=== PATIENT | female | born 1990 ===

== ENCOUNTER 2020-05-27 13:11 | Outpatient (REF) | payer OTHER, SELFPAY ==
[2020-05-27 13:53] LABS: MANUAL DIFF FLAG NO
[2020-05-27 13:58] LABS: Basophils Percent Auto 0.6 % (0-2); Eosinophils Absolute Auto 0.1 X10*3/uL (0.0-0.4); Eosinophils Percent Auto 1.4 % (0-4); Hematocrit 38.5 % (37-47); Hemoglobin 12.1 g/dl (12.0-16.0); Imm Gran Abs Auto 0.01 X10*3/uL (0.00-0.03); Imm Gran Pct Auto 0.2 % (0.0-0.4); Lymphocytes Absolute Auto 2.6 X10*3/uL (1.2-4.9); Mean Corpuscular HGB Conc 31.4 g/dl (31.0-35.0); Mean Corpuscular Hemoglobin 27.1 pg (27.0-33.0); Mean Corpuscular Volume 86.1 fL (80-98); Mean Platelet Volume 11.2 fL (9.4-12.3); Monocytes Absolute Auto 0.4 X10*3/uL (0.1-1.2); Monocytes Percent Auto 6.8 % (2-11); Neutrophils Absolute Auto 2.1 X10*3/uL (2.0-8.3); Platelet Count 390 X10*3/uL (160-400); Red Blood Count 4.47 X10*6/uL (4.20-5.50); Red Cell Distribution Width 13.2 % (11.0-16.0); White Blood Count 5.1 X10*3/uL (4.8-10.8)
[2020-05-27 14:21] LABS: Anion Gap 15 (12-20); Blood Urea Nitrogen 14 mg/dL (9-16); Calcium 9.2 mg/dL (8.4-10.2); Carbon Dioxide 25 mmol/L (22-29); Chloride 105 mmol/L (96-108); Cholesterol 177 mg/dL; Estimated Glomerular Filt Rate > 60; Glucose Fasting 98 mg/dL (60-99); HDL Cholesterol 66 mg/dL; LDL Cholesterol Calculated 94 mg/dl; Potassium 4.5 mmol/l (3.3-5.1); Sodium 140 mmol/L (135-145); Triglycerides 87 mg/dL
== END 2020-05-27 13:12 | disposition home or self-care (01) ==
LOC: HO.LAB 13:11
PROVIDERS: Visit Provider Nurse Practitioner Family
DX: Z00.00 Encounter for general adult medical examination without abnormal findings (principal); N76.0 Acute vaginitis
CPT/HCPCS: 36415; 80048; 80061; 85025

== ENCOUNTER 2020-10-18 12:17 | Outpatient (REF) | payer OTHER, SELFPAY ==
[2020-10-19 08:52] LABS: Mumps Virus IgG Antibody >300.00 AU/mL
[2020-10-21 07:52] LABS: HBS Num1 105.26 mIU/mL (0-7.99); HBc Num1 0.12 S/CO (0.00-0.79); HBsAGNum1 0.16 S/CO (0.00-0.99); Hepatitis B Core Antibody Nonreactive (Nonreactive); Hepatitis B Surface Antigen Negative (Negative); ~Hepatitis B Surface Antibody REACTIVE (Nonreactive)
[2020-10-21 12:42] LABS: TS Negative Control Passed; TS Panel A 0; TS Panel B 0; TS Positive Control Passed; TSpotTB Negative (SeeBelow)
== END 2020-10-18 12:18 | disposition home or self-care (01) ==
LOC: HO.LAB 12:17
PROVIDERS: Visit Provider Internal Medicine
DX: Z01.84 Encounter for antibody response examination (principal)
CPT/HCPCS: 36415; 86481; 86704; 86706; 86735; 86762; 86765; 86787; 87340

== ENCOUNTER 2020-10-22 10:10 | Outpatient (REF) | payer OTHER, SELFPAY ==
[2020-10-22 11:02] LABS: MANUAL DIFF FLAG NO
[2020-10-22 11:18] LABS: Basophils Percent Auto 0.5 % (0-2); Eosinophils Percent Auto 0.5 % (0-4); Hematocrit 37.9 % (37-47); Hemoglobin 12.2 g/dl (12.0-16.0); Lymphocytes Percent Auto 49.2 % (20-40); Mean Corpuscular HGB Conc 32.2 g/dl (31.0-35.0); Mean Corpuscular Hemoglobin 27.3 pg (27.0-33.0); Mean Corpuscular Volume 84.8 fL (80-98); Mean Platelet Volume 11.4 fL (9.4-12.3); Monocytes Absolute Auto 0.3 X10*3/uL (0.1-1.2); Monocytes Percent Auto 7.5 % (2-11); Neutrophils Absolute Auto 1.7 X10*3/uL (2.0-8.3); Neutrophils Percent Auto 42.3 % (45-73); Platelet Count 314 X10*3/uL (160-400); Red Blood Count 4.47 X10*6/uL (4.20-5.50); Red Cell Distribution Width 13.1 % (11.0-16.0)
[2020-10-22 11:26] LABS: Anion Gap 10 (12-20); Blood Urea Nitrogen 12 mg/dL (9-16); Calcium 9.2 mg/dL (8.4-10.2); Carbon Dioxide 26 mmol/L (22-29); Chloride 107 mmol/L (96-108); Estimated Glomerular Filt Rate > 60; Glucose Fasting 93 mg/dL (60-99); Potassium 4.9 mmol/L (3.3-5.1); Sodium 138 mmol/L (135-145)
[2020-10-22 11:50] LABS: TSH reflex Free T4 0.72 uIU/mL (0.32-4.0)
[2020-10-26 15:46] LABS: Vitamin D 25-OH, D2 <4 ng/mL; Vitamin D 25-OH, D3 18 ng/mL; Vitamin D 25-OH, Total 18 ng/mL (30-100)
== END 2020-10-22 10:11 | disposition home or self-care (01) ==
LOC: HO.LAB 10:10
PROVIDERS: Nurse Practitioner Family; PCP Internal Medicine; Visit Provider Internal Medicine
DX: E55.9 Vitamin D deficiency, unspecified (principal); R53.83 Other fatigue; B35.1 Tinea unguium
CPT/HCPCS: 36415; 80048; 82306; 84443; 85025

== ENCOUNTER 2021-01-15 08:22 | Outpatient (REF) | payer OTHER, SELFPAY ==
[2021-01-15 12:12] LABS: Syphilis Screen Nonreactive (Nonreactive)
[2021-01-15 15:41] LABS: CT PCR NOT DETECTED (Not Detect.); NG PCR NOT DETECTED (Not Detect.)
[2021-01-16 09:17] LABS: HIV AB/AG Nonreactive (Nonreactive); Hepatitis B Surface Antigen Negative (Negative); ~HepC Num1 0.21 S/CO (0.00-0.79); ~Hepatitis C Antibody Nonreactive (Nonreactive)
[2021-01-16 10:09] LABS: BV Int Neg Control Negative (Negative); BV Int Pos Control Positive (Positive)
== END 2021-01-15 08:23 | disposition home or self-care (01) ==
LOC: HO.LAB 08:22
PROVIDERS: PCP Internal Medicine; Visit Provider Advanced Practice Midwife
DX: Z01.419 Encounter for gynecological examination (general) (routine) without abnormal findings (principal); N89.8 Other specified noninflammatory disorders of vagina; E28.2 Polycystic ovarian syndrome; Z20.2 Contact with and (suspected) exposure to infections with a predominantly sexual mode of transmission
CPT/HCPCS: 36415; 86780; 86803; 87340; 87389; 87480; 87491; 87510; 87591; 87660; 88142

== ENCOUNTER 2021-08-12 08:51 | Outpatient (REF) | payer OTHER, SELFPAY ==
[2021-08-12 11:33] LABS: HCG Quantitative < 2 mIU/mL
== END 2021-08-12 08:52 | disposition home or self-care (01) ==
LOC: HO.LAB 08:51
PROVIDERS: PCP Internal Medicine; Visit Provider Advanced Practice Midwife
DX: Z32.02 Encounter for pregnancy test, result negative (principal); O26.90 Pregnancy related conditions, unspecified, unspecified trimester; R10.9 Unspecified abdominal pain
CPT/HCPCS: 36415; 81025; 84702; 99212

== ENCOUNTER 2021-10-27 08:15 | Outpatient (REF) | payer OTHER, SELFPAY ==
[2021-10-27 09:40] LABS: Vitamin D 25-OH Total 16.2 ng/mL (>30)
[2021-10-27 09:42] LABS: HBS Num1 90.27 mIU/mL (0-7.99); HBc Num1 0.13 S/CO (0.00-0.79); HBsAGNum1 0.21 S/CO (0.00-0.99); Hepatitis B Core Antibody Nonreactive (Nonreactive); Hepatitis B Surface Antigen Negative (Negative); ~Hepatitis B Surface Antibody REACTIVE (Nonreactive)
[2021-10-29 04:29] LABS: Mumps Virus IgG Antibody >300.00 AU/mL
[2021-10-29 20:53] LABS: TS Negative Control Passed; TS Panel A 0; TS Panel B 0; TS Positive Control Passed; TSpotTB Negative (Negative)
== END 2021-10-27 08:16 | disposition home or self-care (01) ==
LOC: HO.LAB 08:15
PROVIDERS: PCP Internal Medicine; Visit Provider Internal Medicine
DX: Z01.84 Encounter for antibody response examination (principal); Z11.1 Encounter for screening for respiratory tuberculosis; E55.9 Vitamin D deficiency, unspecified
CPT/HCPCS: 36415; 82306; 86481; 86704; 86706; 86735; 86762; 86765; 86787; 87340

== ENCOUNTER 2021-11-25 12:25 | Outpatient (REF) | payer OTHER, SELFPAY ==
[2021-11-25 13:58] LABS: HCG Quantitative < 2 mIU/mL
[2021-11-25 15:58] LABS: Amphetamine Screen Urine Not Detected (Not Detect); Barbiturates, Urine Not Detected (Not Detect); Benzodiazepines Screen Urine Not Detected (Not Detect); Cannabinoid Screen Urine Not Detected (Not Detect); Cocaine Screen Urine Not Detected (Not Detect); Fentanyl, urine Not Detected (Not Detect); Opiate Screen Urine Not Detected (Not Detect); Phencyclidine Screen Urine Not Detected (Not Detect)
== END 2021-11-25 12:26 | disposition home or self-care (01) ==
LOC: HO.LAB 12:25
PROVIDERS: Absent Provider Advanced Practice Midwife; PCP Internal Medicine; Visit Provider Internal Medicine
DX: O26.90 Pregnancy related conditions, unspecified, unspecified trimester (principal); O26.899 Other specified pregnancy related conditions, unspecified trimester; Z02.83 Encounter for blood-alcohol and blood-drug test
CPT/HCPCS: 36415; 80307; 84702

== ENCOUNTER 2021-12-10 09:07 | Outpatient (REF) | payer OTHER, SELFPAY ==
[2021-12-10 11:49] LABS: HCG Quantitative < 2 mIU/mL
== END 2021-12-10 09:08 | disposition home or self-care (01) ==
LOC: HO.LAB 09:07
PROVIDERS: PCP Internal Medicine; Visit Provider Internal Medicine
DX: N92.6 Irregular menstruation, unspecified (principal)
CPT/HCPCS: 36415; 84702

== ENCOUNTER 2022-10-21 12:46 | Emergency (ER) | payer OTHER, SELFPAY ==
--- NOTE | ~2022-10-21 | US_ITS ---
EXAMINATION: US OBSTETRICAL ULTRASOUND CLINICAL INFORMATION: 8 weeks gestation. Cramping. COMPARISON: None available. LMP: 08/23/2022. Gestational age by maternal dates is 8 weeks 3 days. Estimated date of delivery by maternal dates is 05/30/2023. TECHNIQUE: FINDINGS: There is a single intrauterine gestational sac with visible yolk sac, embryo/fetus, and cardiac activity. There is a small hypoechoic area adjacent to the gestational sac suggestive of subchorionic hemorrhage or hematoma measuring 1.9 x 0.5 x 0.7 cm. HR: 170 beats per minute. CRL (crown rump length): 1.81 cm (8 weeks 3 days +/- 4 days). RITA (estimated date of delivery): 05/30/2023 +/- 4 days. MATERNAL ADNEXA: The right maternal ovary measures 2.6 x 1.6 x 2 cm. The left maternal ovary measures 4.3 x 2.8 x 3.5 cm. 2.8 x 2.3 x 3.1 cm left ovarian cyst probably representing a corpus luteum. There is no significant maternal adnexal mass. No maternal pelvic ascites. US/US OB <= 14 weeks fetus IMPRESSION: 1. Single intrauterine gestation with ultrasound gestational age of 8 weeks 3 days +/- 4 days. 2. Estimated date of delivery is 05/30/2023 +/- 4 days. 3. No maternal adnexal mass or pelvic ascites.
--- NOTE | 2022-10-21 13:34 | ED_ITS ---
HPI - General Adult General Chief complaint: General Medical Stated complaint: Not Feeling Well Time Seen by Provider: 10/21/22 16:55 Source: patient and RN notes reviewed Mode of arrival: ambulatory Limitations: no limitations History of Present Illness HPI narrative: This is a 32-year-old female, with a past medical history of pre-eclampsia, @8 weeks gestation c/o generalized weakness, chills, GREEN, constipation, N/V, decreased PO intake, and white vaginal d/c and mild abdominal cramping x 2 weeks. Patient reports that she has had intermittent headaches for the last 3 days. She admits that she has been unable to eat well as she has been nauseous and has been vomiting. She last ate milkshake this morning but states that she vomited this back up. She has been taking Tylenol for her headaches which has provided her with some relief. Last dose was yesterday. Patient denies any chest pain, shortness of breath, weakness, abdominal pain, or diarrhea. No vaginal bleeding. Patient reports that this vaginal discharge she has had for many months has been told that this is normal for her. Denies any increase in vaginal discharge. No other complaints or concerns at this time. MD complaint: Multiple complaints Onset (ago): week(s) Severity: moderate Quality: aching Pain Consistency: constant Relieving factors: none Exacerbating factors: none Associated symptoms: denies other symptoms Treatments prior to arrival: none Related Data Previous Rx's Medication Instructions Recorded cholecalciferol (vitamin D3) 25 25 mcg PO DAILY 90 days #90 caps 10/27/21 mcg (1,000 unit) capsule amoxicillin 500 mg tablet 500 mg PO BID 7 days #14 tabs 12/09/21 terbinafine HCl 250 mg tablet 250 mg PO DAILY 90 days #90 tabs 07/26/22 Allergies Allergy/AdvReac Type Severity Reaction Status Date / Time No Known Allergies Allergy Verified 10/21/22 13:34 Review of Systems Review of Systems: Constitutional: No Weight loss, No Fever, No Chills ENT/Mouth: No Ear Pain, No Nasal Congestion, No Sinus Pain, No Hoarseness, No sore throat, No Rhinorrhea, No Swallowing Difficulty Cardiovascular: No Chest Pain, No SOB Respiratory: No Cough, No Sputum, No Wheezing Gastrointestinal: +Nausea, + Vomiting, No Diarrhea, No Constipation, No Abdominal pain Genitourinary: No Dysuria, No Urinary Frequency, No Hematuria, No Urinary Incontinence/retention, No Urgency, No Flank Pain Musculoskeletal: No joint pain, No Myalgias, No Joint Swelling Skin: No Skin Lesions, No rash Neuro: No Weakness, No Numbness, No Paresthesias Yes all other systems are reviewed and are negative Constitutional: Constitutional: Reports as per [facility] Past Medical History Attestation statement: The following information was validated with the patient. Medical History Bacterial vaginosis Depression Encounter for Depo-Provera contraception General medical examination Onychomycosis of great toe Tiredness Surgical History No pertinent past surgical history Family History Family History Mother No problems noted. Father No problems noted. Social History Social History Housing: Apartment Alcohol intake: never Patient Tobacco Use Status: Never used Tobacco e-Cigarette/Vaping Use: Never Used Second Hand Smoke Exposure: No service: No Current occupational status: employed Cognitive needs: No Hearing needs: No Vision needs: No Physical Exam ED Vital Signs: Vital Signs - 24 hr 10/21/22 17:12 10/21/22 18:22 10/21/22 18:24 Temperature 98.7 F Pulse Rate 70 66 71 Respiratory Rate 14 Blood Pressure 124/69 135/70 139/78 Pulse Oximetry 100 Oxygen Delivery Method Room Air 10/21/22 18:26 10/21/22 20:38 Temperature 96.5 F L Pulse Rate 70 75 Respiratory Rate 18 Blood Pressure 128/84 134/61 Pulse Oximetry 100 Oxygen Delivery Method Room Air BMI result Body Mass Index 29.5 Const General: cooperative, comfortable and no acute distress Orientation/consciousness: patient oriented x3 Limitations: no limitations HENMT Head: Yes normal to inspection, Yes normocephalic and Yes atraumatic Ears: hearing grossly normal bilaterally General nose exam: Normal external nose present Face and sinus: Yes normal facial exam Mouth: Normal oral and palatal mucosa present, oropharynx normal and moist m ucous membranes Throat: Yes posterior oropharynx normal Eyes General: appearance normal, both eyes and all related structures Eyelids: Yes eyelids normal Conjunctivae: conjunctivae normal Sclerae: sclerae normal Pupils: Equal, round and reactive pupils present EOM: EOMs intact bilaterally Neck Neck: Yes normal visual inspection, Yes full ROM and Yes no lymphadenopathy Lymphatic: no lymphadenopathy noted Chest Chest palpation & inspection: normal inspection of the chest Resp Effort & Inspection: normal respiratory effort and able to speak in complete sentences Auscultation: clear to auscultation bilaterally, no crackles, no rales, no rhonchi and no wheezes Cardio Rate: regular rate Rhythm: regular rhythm Heart sounds: S1 normal heart sound present and S2 normal heart sound present GI Other: Mild TTP in epigastrium and suprapubic region. No rebound or guarding. Inspection: Yes normal to inspection Palpation (GI): Soft to palpation Skin General skin exam: no rashes or lesions noted Trauma: no lacerations or abrasions Wounds: no wounds Neuro General: patient oriented x3 and moves all extremities Cranial nerves: Yes Equal, round and reactive pupils present Extrem General: Yes normal to inspection Right upper extremity: normal to inspection Left upper extremity: normal to inspection Right lower extremity: normal to inspection Left lower extremity: normal to inspection Course Course Course Narrative: RME: 32yo F w/PMHx pre-eclampsia, @8 weeks gestation c/o generalized weakness, chills, GREEN, constipation, N/V, decreased PO intake, and white vaginal d/c and mild abdominal cramping x2-3 weeks VSS Labs, UA, US ordered ordered Full HPI, ROS and PE to be performed by primary ED provider. Reevaluation(s) Reevaluation #1: Patient is not orthostatic. US revealing IUP at 8 weeks gestation. All other vital signs and lab workup is reassuring. Patient reports that she is feeling much better after receiving IV fluids and Tylenol. Able to eat and drink without difficulty. Pt neurologically intact. Advised to follow up with OBGYN regarding her symptoms. Pt understands and agrees with plan. Stable for discharge. Time: 20:20 Medications Administered Discontinued Medications Generic Name Dose Route Start Last Admin Trade Name Freq PRN Reason Stop Dose Admin Acetaminophen 975 mg 10/21/22 18:52 10/21/22 19:14 Acetaminophen 325 Mg Tablet PO 10/21/22 18:53 975 mg ONCE ONE Administration Sodium Chloride 1,000 mls @ 999 mls/hr 10/21/22 17:42 10/21/22 19:48 Ns IV 10/21/22 18:42 Infused .Q1H1M ONE Infusion Ondansetron HCl 4 mg 10/21/22 20:19 10/21/22 20:29 Ondansetron Odt 4 Mg Tab.Rapdis TRANSLINGU 10/21/22 20:20 Not Given ONCE ONE Medical Decision Making Medical Decision Making MDM Narrative: 32-year-old female, with a past medical history of pre-eclampsia, @8 weeks gestation c/o generalized weakness, chills, GREEN, constipation, N/V, decreased PO intake, and white vaginal d/c and mild abdominal cramping x 2 weeks. Has not had US with this as of yet. Pt is neurologically intact. VSS. Abdomen is soft, with mild TTP in epigastrium and suprapubic region. Pt complaining of headache, no visual changes, weakness, numbness, tingling. No fevers. Plan: Labs, UA, US ordered. Differential Diagnosis Differential Diagnoses: The differential diagnosis associated with the presen tation includes , ectopic , gastritis, gastroentritis Lab Data [facility] Lab Attestation statement: I reviewed the patient's lab results. 10/21/22 13:53 10/21/22 13:53 Labs: Lab Results 10/21/22 10/21/22 10/21/22 Range/Units 13:47 13:49 13:49 WBC (4.8-10.8) X10*3/uL RBC (4.20-5.50) X10*6/uL Hgb (12.0-16.0) g/dl Hct (37.0-47.0) % MCV (80.0-98.0) fL MCH (27.0-33.0) pg MCHC (31.0-35.0) g/dl RDW (11.0-16.0) % Plt Count (160-400) X10*3/uL MPV (9.4-12.3) fL Immature Gran % (Auto) (0.0-0.4) % Neut % (Auto) (45-73) % Lymph % (Auto) (20-40) % Dixon % (Auto) (2-11) % Eos % (Auto) (0-4) % Baso % (Auto) (0-2) % Lymph # (Auto) (1.2-4.9) X10*3/uL Dixon # (Auto) (0.1-1.2) X10*3/uL Eos # (Auto) (0.0-0.4) X10*3/uL Baso # (Auto) (0.0-0.2) X10*3/uL Abs Immat Gran (auto) (0.00-0.03) X10*3/uL Absolute Neuts (auto) (2.0-8.3) x10*3/uL Absolute Nucleated RBC (0.0-0.012) X10*3/uL Nucleated RBC % (auto) (0.0-0.2) /100WBC Sodium (135-145) mmol/L Potassium (3.3-5.1) mmol/L Chloride (96-108) mmol/L Carbon Dioxide (22-29) mmol/L Anion Gap (12-20) BUN (9-16) mg/dL Creatinine (0.5-1.4) mg/dL Estim Creat Clear Calc Estimated GFR Random Glucose (60-115) mg/dL Calcium (8.4-10.2) mg/dL Magnesium (1.6-2.6) mg/dL Total Bilirubin (0.0-1.0) mg/dL Direct Bilirubin (0.0-0.5) mg/dL AST (5-31) U/L ALT (0-31) U/L Alkaline Phosphatase (39-117) U/L Total Protein (6.5-8.0) g/dL Albumin (3.5-5.0) g/dL Lipase (8-78) U/L Beta HCG, Quant mIU/mL Urine Color Yellow Urine Appearance Clear Urine pH 8.0 (5.0-9.0) Ur Specific [place] 1.025 (1.005-1.025) Urine Protein Negative (Neg-Trace) mg/dL Urine Glucose (UA) Negative (Negative) mg/dL Urine Ketones Trace (Negative) mg/dL Urine Blood Negative (Negative) Urine Nitrite Negative (Negative) Ur Leukocyte Esterase Small (1+) H (Negative) Urine RBC 0-2 (0-2) /HPF Urine WBC 0-5 (0-5) /HPF Ur Squamous Epith Cells 0-2 (0-2) /HPF Urine Bacteria None Seen (None Seen) Hyaline Casts 0-2 (0-2) /LPF COVID-19 ([place]) Negative (Negative) COVID-19 Clin Com See Note Influenza Type A ([facility]) Negative (Negative) Influenza Type B ([facility]HER) Negative (Negative) Influenza A & B Note See Note 10/21/22 10/21/22 10/21/22 Range/Units 13:53 13:53 13:53 WBC 7.9 (4.8-10.8) X10*3/uL RBC 4.34 (4.20-5.50) X10*6/uL Hgb 12.3 (12.0-16.0) g/dl Hct 36.8 L (37.0-47.0) % MCV 84.8 (80.0-98.0) fL MCH 28.3 (27.0-33.0) pg MCHC 33.4 (31.0-35.0) g/dl RDW 12.6 (11.0-16.0) % Plt Count 331 (160-400) X10*3/uL MPV 10.2 (9.4-12.3) fL Immature Gran % (Auto) 0.5 H (0.0-0.4) % Neut % (Auto) 62.4 (45-73) % Lymph % (Auto) 29.5 (20-40) % Dixon % (Auto) 6.8 (2-11) % Eos % (Auto) 0.4 (0-4) % Baso % (Auto) 0.4 (0-2) % Lymph # (Auto) 2.3 (1.2-4.9) X10*3/uL Dixon # (Auto) 0.5 (0.1-1.2) X10*3/uL Eos # (Auto) 0.0 (0.0-0.4) X10*3/uL Baso # (Auto) 0.0 (0.0-0.2) X10*3/uL Abs Immat Gran (auto) 0.04 H (0.00-0.03) X10*3/uL Absolute Neuts (auto) 5.0 (2.0-8.3) x10*3/uL Absolute Nucleated RBC 0.000 (0.0-0.012) X10*3/uL Nucleated RBC % (auto) 0.0 (0.0-0.2) /100WBC Sodium 138 (135-145) mmol/L Potassium 4.1 (3.3-5.1) mmol/L Chloride 104 (96-108) mmol/L Carbon Dioxide 26 (22-29) mmol/L Anion Gap 12 (12-20) BUN 7 L (9-16) mg/dL Creatinine 0.74 (0.5-1.4) mg/dL Estim Creat Clear Calc 129.0 Estimated GFR > 60 Random Glucose 78 (60-115) mg/dL Calcium 9.3 (8.4-10.2) mg/dL Magnesium 2.1 (1.6-2.6) mg/dL Total Bilirubin 0.2 (0.0-1.0) mg/dL Direct Bilirubin < 0.2 (0.0-0.5) mg/dL AST 12 (5-31) U/L ALT 9 (0-31) U/L Alkaline Phosphatase 62 (39-117) U/L Total Protein 7.7 (6.5-8.0) g/dL Albumin 4.0 (3.5-5.0) g/dL Lipase 17 (8-78) U/L Beta HCG, Quant 337883 mIU/mL Urine Color Urine Appearance Urine pH (5.0-9.0) Ur Specific [place] (1.005-1.025) Urine Protein (Neg-Trace) mg/dL Urine Glucose (UA) (Negative) mg/dL Urine Ketones (Negative) mg/dL Urine Blood (Negative) Urine Nitrite (Negative) Ur Leukocyte Esterase (Negative) Urine RBC (0-2) /HPF Urine WBC (0-5) /HPF Ur Squamous Epith Cells (0-2) /HPF Urine Bacteria (None Seen) Hyaline Casts (0-2) /LPF COVID-19 ([place]) (Negative) COVID-19 Clin Com Influenza Type A ([facility]) (Negative) Influenza Type B ([facility]) (Negative) Influenza A & B Note Radiology Impression Discussion of test interpretation with radiology: I have reviewed the radiologist's reading. Radiologist Impression: XAMINATION:? US OBSTETRICAL ULTRASOUND CLINICAL INFORMATION:? 8 weeks gestation. Cramping. COMPARISON:? None available.? LMP: 08/23/2022. Gestational age by maternal dates is 8 weeks 3 days. Estimated date of delivery by maternal dates is 05/30/2023. TECHNIQUE: ? FINDINGS: There is a single intrauterine gestational sac with visible yolk sac, embryo/fetus, and cardiac activity.? There is a small hypoechoic area adjacent to the gestational sac suggestive of subchorionic hemorrhage or hematoma measuring 1.9 x 0.5 x 0.7 cm. HR:? 170 beats per minute. CRL (crown rump length): ? 1.81 cm (8 weeks 3 days +/- 4 days). RITA (estimated date of delivery):? 05/30/2023 +/- 4 days. ? MATERNAL ADNEXA: ? ? The right maternal ovary measures 2.6 x 1.6 x 2 cm. The left maternal ovary measures 4.3 x 2.8 x 3.5 cm.? 2.8 x 2.3 x 3.1 cm left ovarian cyst probably representing a corpus luteum. There is no significant maternal adnexal mass.? No maternal pelvic ascites. US/US OB <= 14 weeks fetus IMPRESSION: 1. Single intrauterine gestation with ultrasound gestational age of? 8 weeks 3 days +/- 4 days. 2. Estimated date of delivery is 05/30/2023 +/- 4 days. 3. No maternal adnexal mass or pelvic ascites. Dictated By: Melisa Smith MD External Record Review External record reviewed: Inpatient record, Office record, Outpatient record, Prior outpatient labs, Prior outpatient radiology, Primary care record and Outside ED record Discharge Plan Discharge Clinical Impression: Headache, Nausea and vomiting during Patient Disposition: Still a Patient Instructions: Nausea and Vomiting in (ED), Acute Nausea and Vomiting (ED) Additional Instructions: Your lab your lab workup was reassuring today, you tested negative for COVID, your urine does not appear to be infected. Your ultrasound shows a single intrauterine gestation , 8 weeks 3 days, estimated delivery date May 30, 2023. Please fern picker vitamin B6 and Unisom tonight as this will help with your nausea. Please follow-up with your primary care physician and OBGYN regarding this visit. Please take Tylenol as directed as needed for headaches. If any new or worsening symptoms occur please return for re-evaluation. Prescriptions: No Action cholecalciferol (vitamin D3) 25 mcg (1,000 unit) capsule 25 mcg PO DAILY 90 Days Qty: 90 3RF amoxicillin 500 mg tablet 500 mg PO BID 7 Days Qty: 14 0RF terbinafine HCl 250 mg tablet 250 mg PO DAILY 90 Days Qty: 90 1RF Interventions: ED Discharge Assessment Last Done: 10/21/22 20:43 Discharge Date/Time: 10/21/22 20:44
[2022-10-21 13:35] VITALS: BP 121/76; PULSE 79; RESP 19; TEMP 36.6; O2SAT 98; BMI 29.5
[2022-10-21 13:57] LABS: MANUAL DIFF FLAG NO
[2022-10-21 14:03] LABS: Appearance Urine Clear; Color Urine Yellow; Glucose Urine UA Negative (Negative); Leukocyte Esterase Urine Small (1+) (Negative); Nitrite Urine Negative (Negative); Specific Gravity - Urine 1.025 (1.005-1.025); UMIC TRIGGER UACC YES; Urine Blood Negative (Negative); Urine Ketones Trace mg/dL (Negative); Urine Protein Negative (Neg-Trace)
[2022-10-21 14:06] LABS: Basophils Percent Auto 0.4 % (0-2); Eosinophils Percent Auto 0.4 % (0-4); Hematocrit 36.8 % (37.0-47.0); Hemoglobin 12.3 g/dl (12.0-16.0); Imm Gran Abs Auto 0.04 X10*3/uL (0.00-0.03); Imm Gran Pct Auto 0.5 % (0.0-0.4); Lymphocytes Absolute Auto 2.3 X10*3/uL (1.2-4.9); Lymphocytes Percent Auto 29.5 % (20-40); Mean Corpuscular HGB Conc 33.4 g/dl (31.0-35.0); Mean Corpuscular Hemoglobin 28.3 pg (27.0-33.0); Mean Corpuscular Volume 84.8 fL (80.0-98.0); Mean Platelet Volume 10.2 fL (9.4-12.3); Monocytes Absolute Auto 0.5 X10*3/uL (0.1-1.2); Monocytes Percent Auto 6.8 % (2-11); Neutrophils Percent Auto 62.4 % (45-73); Platelet Count 331 X10*3/uL (160-400); Red Blood Count 4.34 X10*6/uL (4.20-5.50); Red Cell Distribution Width 12.6 % (11.0-16.0); White Blood Count 7.9 X10*3/uL (4.8-10.8)
[2022-10-21 14:11] LABS: Bacteria Urine None Seen (None Seen); Hyaline Casts Urine 0-2 /LPF (0-2); RBC Urine 0-2 /HPF (0-2); Squamous Epithelial Cell Urine 0-2 /HPF (0-2); UACC Culture Trigger YES; WBC Urine 0-5 /HPF (0-5)
[2022-10-21 14:18] LABS: IDNOW Serial# BCCEAD1C
[2022-10-21 14:19] LABS: COVID-19 Test Negative (Negative)
[2022-10-21 14:27] LABS: Alanine Aminotransferase 9 U/L (0-31); Alkaline Phosphatase 62 U/L (39-117); Anion Gap 12 (12-20); Aspartate Amino Transferase 12 U/L (5-31); Bilirubin Direct < 0.2 mg/dL (0.0-0.5); Bilirubin Total 0.2 mg/dL (0.0-1.0); Blood Urea Nitrogen 7 mg/dL (9-16); Calcium 9.3 mg/dL (8.4-10.2); Carbon Dioxide 26 mmol/L (22-29); Chloride 104 mmol/L (96-108); Estimated Glomerular Filt Rate > 60; Glucose Random 78 mg/dL (60-115); Lipase 17 U/L (8-78); Magnesium 2.1 mg/dL (1.6-2.6); Potassium 4.1 mmol/L (3.3-5.1); Sodium 138 mmol/L (135-145); Total Protein 7.7 g/dL (6.5-8.0)
[2022-10-21 14:38] LABS: IDNOW Serial# BCCEAD1C; Influenza A Negative (Negative); Influenza B2 Negative (Negative)
[2022-10-21 17:12] VITALS: BP 124/69; PULSE 70; RESP 14; TEMP 37.1; O2SAT 100
--- OUTSIDE RECORDS SUMMARY | 2022-10-21 17:14 | XMS_ITS | Continuity of Care Document ---
Author Name Unknown Organization [facility] Address [address], 4[address] [place] [address]- Care Team Providers Care Mergers And Acquisitions Attorney Name Role Phone Not on Staff, PCP Primary Care Physician Unavail able Encounter [facility] Date(s): 04/03/22 - 04/10/22 [facility] [address] 4[address] [place] [id number] [[email or web address]] Attending Physician: Shayla Whalen MD Referring Physician: Matthew Cassidy MD , Mayra Romero Allergies, Adverse Reactions, Alerts No Known Allergies Medications terbinafine 250 mg oral tablet 1 tablet = 250 mg, By Mouth, Daily, 0 Refills, Maintenance, 04/03/22 14:10:00 EST, Partial fill upon patient request if the prescription is for a schedule II opioid drug. Start Date: 04/03/22 Status: Ordered Vital Signs Most recent to oldest [Reference Range]: 1 Height 170 cm (04/03/22 2:07 PM) Weight 85.7 kg (04/03/22 2:07 PM) Pulse Rate [55-90 bpm] 73 bpm (04/03/22 2:07 PM) Body Mass Index [18.5-24.99 kg/m2] 29.65 kg/m2 *H* (04/03/22 2:07 PM) Blood Pressure [90-138/55-84 mm Hg] 148/ 93mm Hg *H* (04/03/22 2:07 PM) Blood pressure [facility] Arm, right (04/03/22 2:07 PM) Note * Rosaura Beck MA: PERFORM, SIGN, VERIFY Event Display: Patient Education/Instruction Authored Date: [id number] [facility] *[facility] Clinical Summary Name JOSEPH LEONG Age 31 Years 1990 PCP Not on Staff, PCP PCP Phone Visit Date 04/03/2022 13:57:00 Additional Instructions: Scheduled Appointments?? Future Appointments ?No Future Appointments Scheduled Follow-Up Instructions ?? Diagnosis Medications: Please continue your medications until treatment is completed or stopped by your provider. Discuss any questions related to medications with your provider. Medications to Continue with No Changes These medications were not printed or sent to your pharmacy Terbinafine (terbinafine 250 mg oral tablet) 1 tab(s) Oral Daily. Next Dose: Allergy Info:?? NKA Medications Given This Visit Future Orders ?Type and Screen? Order Date:04/03/22?- Complete within?6 months ?Cystic Fibrosis Gene Test w/Interp? Order Date:04/03/22?- Complete within?6 months ?Chlamydia/N. Gonorrhoeae TMA (NAAT)? Order Date:04/03/22?- Complete on or after?04/03/22 ?FSH? Order Date:04/03/22?- Complete within?6 months ?Testosterone Free (Male <16yrs, All Fem)? Order Date:04/03/22?- Complete within?6 months ?Hepatitis B Surface Antigen? Order Date:04/03/22?- Complete within?6 months ?Syphilis Testing formerly ordered as RPR? Order Date:04/03/22?- Complete within?6 months ?Hemoglobin A1C (Monitoring)? Order Date:04/03/22?- Complete within?6 months ?HIV Ab-Ag 4th Generation? Order Date:04/03/22?- Complete within?6 months ?Estradiol (Female >= 16yrs)? Order Date:04/03/22?- Complete within?6 months ?LH? Order Date:04/03/22?- Complete within?6 months ?Testosterone by Extraction? Order Date:04/03/22?- Complete within?6 months ?Nicotine Level? Order Date:04/03/22?- Complete within?6 months ?SMA Carrier Screen? Order Date:04/03/22?- Complete within?6 months ?Anti Mullerian Hormone? Order Date:04/03/22?- Complete within?6 months ?TSH with T4 Reflex (Adults Only)? Order Date:04/03/22?- Complete within?6 months ?Prolactin Level? Order Date:04/03/22?- Complete within?6 months ?Rubella (Zimbabwean Measles) IgG? Order Date:04/03/22?- Complete within?6 months ?Hepatitis C Ab? Order Date:04/03/22?- Complete within?6 months ?Hysterosalpingogram? Order Date:05/04/22?- Complete by?05/11/22 Vital Signs Height 170 cm Weight 85.7 kg BMI 29.65 kg/m2 Blood Pressure 148 mm Hg/93 mm Hg Temperature Pulse Rate 73 bpm Respiratory Rate 02 Sat Mode of Delivery / You can now view a summary of your hospital visit from the comfort of your home through a free online portal called [employer]. [employer] is a website that allows you to securely view your medical information including discharge summary, medications and follow-up visits. ??You can alsosend a secure electronic message to your doctor???s office to request appointments, renew medications or just ask a question. You can enroll at [email or web address] or register during your next office visit. Disclaimer:?? The information provided is of a general nature and is intended to be used in conjunction with the recommendations and advice of your health care practitioner. ??Every effort has been made to ensure that the information provided is accurate and complete at the time it is provided to you however, as your needs change, or, as new ??information becomes available, different or additional instructions may be required. If you have questions, please consult with your primary care provider or pharmacist, as appropriate. ??This information is not intended to serve as substitution for assessment and evaluation by a qualified health care provider. If you do not have a primary care provider, you may find a [facility] provider by calling [facility] at [phone]. For information about the plan of care including goals and instructions for your diagnosis, please see the patient education orders section of this document. Patient Education Materials?? The content of this educational material or handout may have been modified, supplemented, or adapted from its original content and format to support your individualized medical care. Additional Provider Instructions: Met with demetrio and reviewed HSG protocol. Pt to call office on DAY 1 of bleeding. Lab orders placed for both pt and partner and pt is aware to have hers drawn on day 3. Semen Analysis order faxed for partner. CF and SMA screen orders placed and sent to [facility]anson for Authorization. Pt expresses understanding today. Patient Care team information Care Team Personnel Name: Not on Staff, PCP Position: S Physician (General Medicine) Member Role: PCP Care Team Related Persons Name: AKIKO JUNGQUEZ Address: home [address] [place] [id number]
--- OUTSIDE RECORDS SUMMARY | 2022-10-21 17:14 | XMS_ITS | Continuity of Care Document ---
Author Name Unknown Organization [facility] Address [address] [place] [address], [address] [place] [id number]- Care Team Providers Care Procurement Cost Coordinator Name Role Phone Not on Staff, PCP Primary Care Physician Unavail able Encounter [facility] Date(s): 04/03/22 - 05/03/22 [facility] [address] [place] [address], [address] [place] [id number] Attending Physician: Brisa Angel Admitting Physician: Brisa Angel Referring Physician: AdmtrBrisa Allergies, Adverse Reactions, Alerts No Known Allergies Medications terbinafine 250 mg oral tablet 1 tablet = 250 mg, By Mouth, Daily, 0 Refills, Maintenance, 04/03/22 14:10:00 EST, Partial fill upon patient request if the prescription is for a schedule II opioid drug. Start Date: 04/03/22 Status: Ordered Patient Care team information Care Team Personnel Name: Not on Staff, PCP Position: [facility] Physician (General Medicine) Member Role: PCP Care Team Related Persons Name: DANG JUNG Address: home [address] [place] [address]
--- OUTSIDE RECORDS SUMMARY | 2022-10-21 17:14 | XMS_ITS | Continuity of Care Document ---
Author Name Unknown Organization [facility] ter Address [address] [place] [id number]- Care Team Providers Care Terrazzo Worker Name Role Phone Not on Staff, PCP Primary Care Physician Unavail able Encounter [facility] Date(s): 01/06/22 - 01/06/[address] [address]- Encounter Diagnosis Contusion of right knee(Final) - 01/06/22 Discharge Disposition: A-D/C Home Attending Physician: Gema Saleh MD Admitting Physician: Gema Saleh MD Referring Physician: Not on Staff, Referring MD Allergies, Adverse Reactions, Alerts No Known Allergies Vital Signs Most recent to oldest [Reference Range]: 1 2 Height 170 cm (01/06/22 8:01 PM) Weight 85 kg (01/06/22 8:01 PM) Oxygen Saturation [94-100 %] 100 % (01/06/22 8:01 PM) 100 % (01/06/22 7:59 PM) Pulse Rate [55-90 bpm] 65 bpm (01/06/22 8:01 PM) 86 bpm (01/06/22 7:59 PM) Blood Pressure [90-138/55-84 mm Hg] 151/ 35mm Hg *H* (01/06/22 8:01 PM) Respiratory Rate [16-30 br/min] 16 br/mi n (01/06/22 8:01 PM) 18 br/min (01/06/22 7:59 PM) Temperature [96.8-100.4 DegF] 98.1 DegF (01/06/22 8:01 PM) Mode of Delivery (Oxygen) Room air (01/06/22 8:01 PM) Room air (01/06/22 7:59 PM) Blood pressure sites Arm, left (01/06/22 8:01 PM) Temperature Route Oral (01/06/22 8:01 PM) Care Team Personnel Name: Not on Staff, PCP
[2022-10-21] MEDS: 0.9 % Sodium Chloride 1,000 ML 999 ML IV (17:57)
--- NOTE | 2022-10-21 18:02 | PC.NURSE ---
20g IV placed in Left AC, 1L NS infusing per order
[2022-10-21 18:22] VITALS: BP 135/70; PULSE 66
[2022-10-21 18:24] VITALS: BP 139/78; PULSE 71
[2022-10-21 18:26] VITALS: BP 128/84; PULSE 70
[2022-10-21] MEDS: Acetaminophen 325 MG TABLET 975 MG PO (19:14)
[2022-10-21 20:38] VITALS: BP 134/61; PULSE 75; RESP 18; TEMP 35.8; O2SAT 100
== END 2022-10-21 20:44 | disposition still patient (30) ==
PROVIDERS: Physician Assistant; Emergency Provider Emergency Medicine Emergency Medical Services; PCP Internal Medicine
DX: O26.891 Other specified pregnancy related conditions, first trimester (principal); R51.9 Headache, unspecified; R11.2 Nausea with vomiting, unspecified; Z3A.08 8 weeks gestation of pregnancy; Z20.822 Contact with and (suspected) exposure to COVID-19
CPT/HCPCS: 36415; 76801; 80048; 80076; 81001; 81003; 83690; 83735; 84702; 85025; 87086; 87502; 87635; 96360; 96361; 99284

== ENCOUNTER 2022-10-29 08:30 | Outpatient (REF) | payer OTHER, SELFPAY ==
[2022-10-29 10:10] LABS: Vitamin D 25-OH Total 28.2 ng/mL (>30)
[2022-10-29 10:26] LABS: Folate 13.2 ng/mL (> or = 4.0); Vitamin B12 792 pg/mL (200-900)
[2022-10-31 17:13] LABS: TS Negative Control Passed; TS Panel A 0; TS Panel B 0; TS Positive Control Passed; TSpotTB Negative (Negative)
== END 2022-10-29 08:31 | disposition home or self-care (01) ==
LOC: HO.LAB 08:30
PROVIDERS: PCP Internal Medicine; Visit Provider Internal Medicine
DX: Z11.1 Encounter for screening for respiratory tuberculosis (principal); E53.8 Deficiency of other specified B group vitamins; E55.9 Vitamin D deficiency, unspecified
CPT/HCPCS: 36415; 82306; 82607; 82746; 86481

== ENCOUNTER 2023-11-03 09:08 | Outpatient (AMB) | payer OTHER, SELFPAY ==
[2023-11-03 09:18] VITALS: BP 122/68; PULSE 57; O2SAT 98; BMI 26.5
--- NOTE | 2023-11-03 09:18 | MHC.PC.OV ---
Vital Signs 11/03/23 09:18 Height 5 ft 8 in Weight 174 lb BMI 26.5 BP 122/68 Blood Pressure Location Lt brachial Position Sitting Pulse 57 Pulse Source Pulse Oximeter Pulse Oximetry (%) 98 Oxygen Delivery Method Room Air Intake Visit Reasons: Annual Exam Personnel Associate Required: No Accompanied by: Self / Same As Patient Allergies No Known Allergies Allergy (Verified 11/03/23 09:29) Medication List - Last Reconciled 11/03/23 by Mayra Cassidy MD cholecalciferol (vitamin D3) 25 mcg PO DAILY 90 days sennosides (senna) 8.6 mg PO BEDTIME PRN 30 days Tobacco use date assessed: 11/03/23 Dental Screening Dental Screen Date: 11/03/23 Did you have a dental visit in the last 12 months?: Yes Did you have a dental problem in the last 6 months where you did not have access to dental care?: No Was dental information given to patient?: Patient has dentist HPI HPI Comments History of Present Illness Details This is a 33-year-old female that comes for her physical exam. Last Pap smear was 2020. Had a vaginal delivery May 2023. No chest pain or shortness on breath. Complains of onychomycosis and vaginal candidiasis and treatment will be sent for both. [facility]LY [facility] Medical History (Updated 11/03/23 @ 09:43 by Mayra Cassidy MD) Tiredness Depression Encounter for Depo-Provera contraception Onychomycosis of great toe General medical examination Bacterial vaginosis Surgical History No pertinent past surgical history Family History Mother No problems noted. Father No problems noted. Social History Housing: Apartment Alcohol intake: never Patient Tobacco Use Status: Never used Tobacco e-Cigarette/Vaping Use: Never Used Second Hand Smoke Exposure: No service: No Current occupational status: employed Current occupational exposures/hazards: No Cognitive needs: No Hearing needs: No Vision needs: No Female Reproductive History Menstrual Age of Menarche: 12 Questionnaire PHQ-9 Over the last 2 weeks, how often have you been bothered by any of the following problems? 1. Little interest or pleasure in doing things: not at all 2. Feeling down, depressed, or hopeless: not at all 3. Trouble falling or staying asleep, or sleeping too much: not at all 4. Feeling tired or having little energy: not at all 5. Poor appetite or overeating: not at all 6. Feeling bad about yourself - or that you are a failure or have let yourself or your family down: not at all 7. Trouble concentrating on things, such as reading the newspaper or watching television: not at all 8. Moving or speaking so slowly that other people could have noticed. Or the opposite - being so fidgety or restless that you have been moving around a lot more than usual: not at all 9. Thoughts that you would be better off or of hurting yourself in some way: not at all Total score: 0 Depression Screening Interpretation: Negative Depression Screening Done: Yes 04634 - PHQ-9 Billing: Yes Source: Developed by Drs. Thien Morris, Caridad Jones, Javy Brown and colleagues, with an educational helen from [employer]. Thrive Questionnaire Date Thrive assessed: 11/03/23 I am a: Patient What is your living situation today?: I have a steady place to live Within the past 12 months, did the food you bought not last and you didn't have the money to get more?: Never true Within the past 12 months, did you worry whether your food would run out before you got money to buy more?: Never true Do you have trouble paying for medicines?: No Do you have trouble getting transportation to medical appointments?: No Do you have trouble paying your heating and electricity bill?: No Do you have trouble taking care of your child, family member or friend?: No Do you have trouble with day-to-day activities such as bathing, preparing meals, shopping, managing finances, etc.?: No Are you currently unemployed and looking for a job?: No Are you interested in more education?: No Please select the resources that you would like help with: None Currently or been in a relationship where the following occur: No concerns reported THRIVE Score: 0 AUDIT C Alcohol Use Questionnaire (AUDIT-C) 1. How often do you have a drink containing alcohol?: Never Total Score: 0 Score Reviewed/Action Taken: No RAHEL-7 AMB Questionnaire RAHEL-7 Date RAHEL - 7 assessed: 11/03/23 Feeling nervous, anxious, or on edge: 1 = Several days Not being able to stop or control worryin = Not at all Worrying too much about different things: 1 = Several days Trouble relaxin = Not at all Being so restless that it is hard to sit still: 0 = Not at all Becoming easily annoyed or irritable: 1 = Several days Feeling afraid as if something awful might happen: 0 = Not at all Total RAHEL-7 score (0-4 normal; 5-9 mild; 10-14 moderate; 15-21 severe): 3 Source: Developed by Drs. Thien Morris, Caridad Jones, Javy Brown and colleagues, with an educational helen from [employer]. RAHEL-7 Assessment Billing RAHEL-7 Assessment Tool: RAHEL-7 Assessment 94035 Review of Systems Const All systems reviewed & are unremarkable except as noted in HPI and below Card Denies chest pain at rest, Denies chest pain with activity, Denies edema, Denies irregular heart rhythm, Denies claudication, Denies dyspnea, Denies dyspnea on exertion, Denies orthopnea, Denies paroxysmal nocturnal dyspnea and Denies slow heart rate Resp Denies cough, Denies dyspnea and Denies dyspnea on exertion GI Denies abdominal pain, Denies change in bowel habits, Denies excessive flatus, Denies nausea and Denies vomiting Denies urinary incontinence, Denies urinary hesitancy and Denies urinary urgency Neuro Denies behavioral changes and Denies lack of coordination Psych Denies behavioral changes Physical exam (Primary Care) Vital Signs: Last Vital Signs Pulse 57 11/03/23 09:18 BP 122/68 11/03/23 09:18 Pulse Ox 98 11/03/23 09:18 Oxygen Delivery Method Room Air 11/03/23 09:18 BMI result Body Mass Index 26.5 Tobacco/Smoking Status: Tobacco use Status Tobacco use date assessed 11/03/23 11/03/23 09:24 Patient Tobacco Use Status Never used Tobacco 11/03/23 09:24 Tobacco use type 10/27/21 08:01 e-Cigarette/Vaping Use Never Used 11/03/23 09:24 PHQ-9: PHQ-9 Score PHQ-9: Total score 0 11/03/23 09:24 Depression Screening Interpretation: Negative Thrive Assessment: Date of Thrive Assessment Date Thrive assessed 11/03/23 11/03/23 09:24 Currently or been in a relationship where the following occur: No concerns reported [facility] Head: Yes normal to inspection, Yes normocephalic and Yes atraumatic Ears: external ears normal Eyes General: appearance normal, both eyes and all related structures Eyelids: Yes eyelids normal Conjunctivae: conjunctivae normal Neck Neck: Yes normal visual inspection and Yes supple Resp Effort & Inspection: normal respiratory effort Auscultation: clear to auscultation bilaterally Cardio Jugular venous distension: no JVD Rate: regular rate Rhythm: regular rhythm Heart sounds: S1 normal heart sound present and S2 normal heart sound present GI Inspection: Yes normal to inspection Palpation (GI): Soft to palpation and nontender Auscultation: normal bowel sounds Skin Other: Onychomycosis General skin exam: no rashes or lesions noted Neuro General: no focal motor deficits Extrem General: Yes full ROM Psych Appearance: grossly normal Assessment and Plan Assessment & Plan (1) Physical exam: Code(s): Z00.00 - Encounter for general adult medical examination without abnormal findings Plan: Repeat in a year. (2) Onychomycosis: Code(s): B35.1 - Tinea unguium Plan: Start terbinafine. (3) Vaginal candidiasis: Code(s): B37.31 - Acute candidiasis of vulva and vagina Plan: Start fluconazole. Orders: Orders Rubeola IgG (Measles) Today Z23 - Encounter for immunization Varicella IgG Antibody Today Z23 - Encounter for immunization Complete Blood Count Auto Diff Today D64.9 - Anemia, unspecified IRON PROFILE Today D64.9 - Anemia, unspecified T Spot TB Today Z11.1 - Encounter for screening for respiratory tuberculosis Vitamin D 25-OH Total Today E55.9 - Vitamin D deficiency, unspecified Comprehensive [place]. Panel Fast Today Z00.00 - Encounter for general adult medical examination without abnormal findings Lipid Panel Today E78.5 - Hyperlipidemia, unspecified, Z00.00 - Encounter for general adult medical examination without abnormal findings Mumps Virus IgG Antibody Today Z23 - Encounter for immunization Rubella IgG Antibody Today Z23 - Encounter for immunization Hepatitis B Profile Today Z23 - Encounter for immunization Medications: New terbinafine HCl 250 mg PO DAILY 90 days 90 tabs 0RF terbinafine HCl 250 mg PO DAILY 90 days 90 tabs 0RF fluconazole 150 mg PO Q3D 2 tabs 0RF Refilled cholecalciferol (vitamin D3) 25 mcg PO DAILY 90 days 90 caps 1RF sennosides (senna) 8.6 mg PO BEDTIME 30 days PRN 30 tabs 0RF constipation Coding Level of Care Code Est Pt Level 3 (42454) Est Pt Prev Care 18-39y(10579) Diagnoses Physical exam Z00.00 Onychomycosis B35.1 Vaginal candidiasis B37.31 Additional Codes RAHEL-7 Assessment Billing - RAHEL-7 Assessment Tool: RAHEL-7 Assessment 27849 ([id number]) Time Spent (min) 31
== END 2023-11-03 09:49 | disposition home or self-care (01) ==
PROVIDERS: PCP Internal Medicine; Visit Provider Internal Medicine
DX: Z00.00 Encounter for general adult medical examination without abnormal findings (principal); B35.1 Tinea unguium; B37.31 Acute candidiasis of vulva and vagina
CPT/HCPCS: 99213; 99395

== ENCOUNTER 2023-11-03 10:00 | Outpatient (REF) | payer OTHER, SELFPAY ==
[2023-11-03 10:40] LABS: Basophils Percent Auto 0.9 % (0-2); Eosinophils Absolute Auto 0.1 X10*3/uL (0.0-0.4); Eosinophils Percent Auto 1.5 % (0-4); Hematocrit 39.5 % (37.0-47.0); Hemoglobin 12.4 g/dl (12.0-16.0); Imm Gran Abs Auto 0.01 X10*3/uL (0.00-0.03); Imm Gran Pct Auto 0.2 % (0.0-0.4); Lymphocytes Absolute Auto 2.9 X10*3/uL (1.2-4.9); Lymphocytes Percent Auto 62.8 % (20-40); MANUAL DIFF FLAG SCAN; Mean Corpuscular HGB Conc 31.4 g/dl (31.0-35.0); Mean Corpuscular Hemoglobin 26.3 pg (27.0-33.0); Mean Corpuscular Volume 83.9 fL (80.0-98.0); Mean Platelet Volume 11.6 fL (9.4-12.3); Monocytes Absolute Auto 0.2 X10*3/uL (0.1-1.2); Monocytes Percent Auto 5.3 % (2-11); Neutrophils Absolute Auto 1.3 x10*3/uL (2.0-8.3); Neutrophils Percent Auto 29.3 % (45-73); Platelet Count 312 X10*3/uL (160-400); Red Blood Count 4.71 X10*6/uL (4.20-5.50); Red Cell Distribution Width 14.4 % (11.0-16.0); SCAN SMEAR FLAG 1; White Blood Count 4.5 X10*3/uL (4.8-10.8)
[2023-11-03 11:17] LABS: Alanine Aminotransferase 11 U/L (0-31); Albumin Level 4.3 g/dL (3.5-5.0); Alkaline Phosphatase 91 U/L (39-117); Anion Gap 10 (12-20); Aspartate Amino Transferase 17 U/L (5-31); Bilirubin Total 0.3 mg/dL (0.0-1.0); Blood Urea Nitrogen 14 mg/dL (9-16); Calcium 9.2 mg/dL (8.4-10.2); Carbon Dioxide 26 mmol/L (22-29); Chloride 109 mmol/L (96-108); Cholesterol 178 mg/dL (<200); Estimated Glomerular Filt Rate > 60; Glucose Fasting 94 mg/dL (60-99); HDL Cholesterol 65 mg/dL (>40); Iron 41 mcg/dL (30-160); LDL Cholesterol Calculated 98 mg/dL (<100); Percent Iron Saturation 11 % (15-50); Potassium 4.3 mmol/L (3.3-5.1); Sodium 141 mmol/L (135-145); Total Iron Binding Capacity 362 mcg/dL (228-428); Total Protein 7.8 g/dL (6.5-8.0); Triglycerides 79 mg/dL (<150); Unsaturated Iron Binding 321 ug/dL
[2023-11-03 11:18] LABS: Vitamin D 25-OH Total 18.6 ng/mL (>30)
[2023-11-03 11:24] LABS: SLIDE REVIEW VERIFIED
[2023-11-03 13:51] LABS: HBS Num1 125.01 mIU/mL (0-7.99); Hepatitis B Core Antibody Nonreactive (Nonreactive); Hepatitis B Surface Antigen Negative (Negative); ~Hepatitis B Surface Antibody REACTIVE (Nonreactive)
[2023-11-05 22:19] LABS: TS Negative Control Passed; TS Panel A 0; TS Panel B 0; TS Positive Control Passed; TSpotTB Negative (Negative)
== END 2023-11-03 10:01 | disposition home or self-care (01) ==
LOC: HO.LAB 10:00
PROVIDERS: PCP Internal Medicine; Visit Provider Internal Medicine
DX: Z00.00 Encounter for general adult medical examination without abnormal findings (principal); Z23 Encounter for immunization; D64.9 Anemia, unspecified; Z11.1 Encounter for screening for respiratory tuberculosis; E55.9 Vitamin D deficiency, unspecified; E78.5 Hyperlipidemia, unspecified
CPT/HCPCS: 36415; 80053; 80061; 82306; 83540; 85025; 86481; 86704; 86706; 86735; 86762; 86765; 86787; 87340

== ENCOUNTER 2024-06-30 11:11 | Outpatient (REF) | payer OTHER, SELFPAY ==
[2024-06-30 12:15] LABS: Appearance Urine Clear; Color Urine Yellow; Glucose Urine UA Negative (Negative); Leukocyte Esterase Urine Small (1+) (Negative); Nitrite Urine Negative (Negative); Specific Gravity - Urine 1.015 (1.005-1.025); UMIC TRIGGER UACC YES; Urine Blood Negative (Negative); Urine Ketones Negative (Negative); Urine Protein Negative (Neg-Trace)
[2024-06-30 12:20] LABS: Bacteria Urine Trace (None Seen); Hyaline Casts Urine 0-2 /LPF (0-2); RBC Urine 0-2 /HPF (0-2); UACC Culture Trigger YES
== END 2024-06-30 11:12 | disposition home or self-care (01) ==
LOC: HO.LAB 11:11
PROVIDERS: PCP Internal Medicine; Visit Provider Internal Medicine
DX: R30.0 Dysuria (principal)
CPT/HCPCS: 81001; 81003; 87086; 87088; 87186

== ENCOUNTER 2024-11-08 16:15 | Outpatient (AMB) | payer OTHER, SELFPAY ==
[2024-11-08 16:19] VITALS: BP 120/80; BMI 27.4
--- NOTE | 2024-11-08 16:19 | A.OFFPC_ITS ---
Vital Signs 11/08/24 16:19 Height 5 ft 8 in Weight 180 lb BMI 27.4 BP 120/80 Blood Pressure Location Lt brachial Position Sitting Intake Visit Reasons: annual exam Intake Note: Patient here for a physical exam Manager Field Sales Required: No Accompanied by: Child Allergies No Known Allergies Allergy (Verified 11/08/24 16:36) Medication List - Last Reconciled 11/08/24 by Mayra Cassidy MD aspirin 162 mg PO DAILY docusate sodium 100 mg PO BID Tobacco use date assessed: 11/08/24 Dental Screening Dental Screen Date: 11/08/24 Did you have a dental visit in the last 12 months?: Yes Did you have a dental problem in the last 6 months where you did not have access to dental care?: No Was dental information given to patient?: Patient has dentist HPI HPI Comments History of Present Illness Details This is a 34-year-old female that comes for her physical exam. Tdap vaccine and Pap smears are up-to-date. She is currently 16 with . No acute complaints. FOR[facility]LY [facility] Medical History Tiredness Depression Encounter for Depo-Provera contraception Onychomycosis of great toe General medical examination Bacterial vaginosis Surgical History No pertinent past surgical history Family History Mother No problems noted. Father No problems noted. Social History (Updated 11/08/24 @ 16:41 by Mayra Cassidy MD) Housing: Apartment Alcohol intake: former Patient Tobacco Use Status: Never used Tobacco e-Cigarette/Vaping Use: Never Used Second Hand Smoke Exposure: No service: No Current occupational status: unemployed and student Cognitive needs: No Hearing needs: No Vision needs: No Female Reproductive History Menstrual Age of Menarche: 12 Questionnaire PHQ-9 Over the last 2 weeks, how often have you been bothered by any of the following problems? 1. Little interest or pleasure in doing things: not at all 2. Feeling down, depressed, or hopeless: not at all 3. Trouble falling or staying asleep, or sleeping too much: not at all 4. Feeling tired or having little energy: not at all 5. Poor appetite or overeating: not at all 6. Feeling bad about yourself - or that you are a failure or have let yourself or your family down: not at all 7. Trouble concentrating on things, such as reading the newspaper or watching television: not at all 8. Moving or speaking so slowly that other people could have noticed. Or the opposite - being so fidgety or restless that you have been moving around a lot more than usual: not at all 9. Thoughts that you would be better off or of hurting yourself in some way: not at all Total score: 0 Depression Screening Interpretation: Negative Depression Screening Done: Yes 29029 - PHQ-9 Billing: Yes Source: Developed by Drs. Thine Morris, Caridad Jones, Javy Brown and colleagues, with an educational helen from [employer]. Thrive Questionnaire Date Thrive assessed: 11/08/24 I am a: Patient What is your living situation today?: I have a steady place to live Within the past 12 months, did the food you bought not last and you didn't have the money to get more?: Never true Within the past 12 months, did you worry whether your food would run out before you got money to buy more?: Never true Do you have trouble paying for medicines?: No Do you have trouble getting transportation to medical appointments?: No Do you have trouble paying your heating and electricity bill?: No Do you have trouble taking care of your child, family member or friend?: No Do you have trouble with day-to-day activities such as bathing, preparing meals, shopping, managing finances, etc.?: No Are you currently unemployed and looking for a job?: No Are you interested in more education?: No Please select the resources that you would like help with: None Currently or been in a relationship where the following occur: No concerns reported THRIVE Score: 0 AUDIT C Alcohol Use Questionnaire (AUDIT-C) 1. How often do you have a drink containing alcohol?: Never Total Score: 0 Score Reviewed/Action Taken: No RAHEL-7 AMB Questionnaire RAHEL-7 Date RAHEL - 7 assessed: 11/08/24 Feeling nervous, anxious, or on edge: 0 = Not at all Not being able to stop or control worryin = Not at all Worrying too much about different things: 0 = Not at all Trouble relaxin = Not at all Being so restless that it is hard to sit still: 0 = Not at all Becoming easily annoyed or irritable: 0 = Not at all Feeling afraid as if something awful might happen: 0 = Not at all Total RAHEL-7 score (0-4 normal; 5-9 mild; 10-14 moderate; 15-21 severe): 0 Source: Developed by Drs. Thien Morris, Caridad Jones, Javy Brown and colleagues, with an educational helen from [employer]. RAHEL-7 Assessment Billing RAHEL-7 Assessment Tool: RAHEL-7 Assessment 57183 Review of Systems Const All systems reviewed & are unremarkable except as noted in HPI and below Card Denies chest pain at rest, Denies chest pain with activity, Denies edema, Denies irregular heart rhythm, Denies claudication, Denies dyspnea, Denies dyspnea on exertion, Denies orthopnea, Denies paroxysmal nocturnal dyspnea and Denies slow heart rate Resp Denies cough, Denies dyspnea and Denies dyspnea on exertion Neuro Denies lack of coordination Physical exam (Primary Care) Vital Signs: Last Vital Signs BP 120/80 11/08/24 16:19 BMI result Body Mass Index 27.4 Tobacco/Smoking Status: Tobacco use Status Tobacco use date assessed 11/08/24 11/08/24 16:26 Patient Tobacco Use Status Never used Tobacco 11/08/24 16:41 Tobacco use type 10/27/21 08:01 e-Cigarette/Vaping Use Never Used 11/08/24 16:41 PHQ-9: PHQ-9 Score PHQ-9: Total score 0 11/08/24 16:41 Depression Screening Interpretation: Negative Thrive Assessment: Date of Thrive Assessment Date Thrive assessed 11/08/24 11/08/24 16:26 Currently or been in a relationship where the following occur: No concerns reported [facility] Head: Yes normal to inspection, Yes normocephalic and Yes atraumatic Ears: external ears normal Eyes General: appearance normal, both eyes and all related structures Eyelids: Yes eyelids normal Conjunctivae: conjunctivae normal Neck Neck: Yes normal visual inspection and Yes supple Resp Effort & Inspection: normal respiratory effort Auscultation: clear to auscultation bilaterally Cardio Jugular venous distension: no JVD Rate: regular rate Rhythm: regular rhythm Heart sounds: S1 normal heart sound present and S2 normal heart sound present GI Inspection: Yes normal to inspection Palpation (GI): Soft to palpation and nontender Auscultation: normal bowel sounds Skin General skin exam: no rashes or lesions noted Neuro General: no focal motor deficits Extrem General: Yes full ROM Psych Appearance: grossly normal Coding Level of Care Code Est Pt Prev Care 18-39y(15308) Diagnoses Physical exam Z00.00 Additional Codes RAHEL-7 Assessment Billing - RAHEL-7 Assessment Tool: RAHEL-7 Assessment 03846 ([id number]) PHQ-9 - 21143 - PHQ-9 Billing: Yes ([id number]) Time Spent (min) 30 Assessment & Plan Assessment & Plan (1) Physical exam: Code(s): Z00.00 - Encounter for general adult medical examination without abnormal findings Category: Medical Plan Repeat in a year. Orders: Orders T Spot TB Today Z11.1 - Encounter for screening for respiratory tuberculosis Vitamin D 25-OH Total Today E55.9 - Vitamin D deficiency, unspecified
== END 2024-11-08 16:46 | disposition home or self-care (01) ==
LOC: HO.HMCH 16:15
PROVIDERS: PCP Internal Medicine; Visit Provider Internal Medicine
DX: Z00.00 Encounter for general adult medical examination without abnormal findings (principal)

== ENCOUNTER → 2024-11-08 16:15 | Outpatient (BNVA) | payer OTHER, SELFPAY | PROVIDERS: PCP Internal Medicine; Visit Provider Internal Medicine | DX: Z00.00 Encounter for general adult medical examination without abnormal findings (principal); E55.9 Vitamin D deficiency, unspecified | CPT/HCPCS: 96127; 99395 ==

== ENCOUNTER 2024-11-20 14:27 | Outpatient (REF) | payer OTHER, SELFPAY ==
--- OUTSIDE RECORDS SUMMARY | 2024-11-20 15:18 | XMS_ITS | Encounter Summary ---
Author Organization [facility] Address [address] [facility] [address] [place] [id number] Phone Care Team Providers Care Sewer Pipe Layer Name Role Phone Mayra Olivo MD Primary Care Provid er Encounter Details Date Type Department Care Team (Late st Contact Info) Description 11/05/2022 Transcribe Orders [facility] [address] [place] [address] Brissa King CNM [address] [facility], [address] [place] [phone] [email or web address] Social History Tobacco Use Types Packs/Day Years Used Date Smoking Tobacco: Never Smokeless Tobacco: Former Alcohol Use Standard Drinks/Week Comments Not Currently 0 (1 standard drink = 0.6 oz pur e alcohol) Social Education Answer Date Recorded Are you interested in more education? Not on alla e 09/18/2022 Are you concerned about learning? Not on file 09/18/2022 No 09/18/2022 No 09/18/2022 Digital Access Answer Date Recorded No 09/29/2022 No 09/29/2022 Reliable internet access at home? Not on file 09/29/2022 Device with a working camera? Not on file Comments Yes Sex and Gender Information Value Date Recorded Sex Assigned at Female 05/06/2023 5:28 PM EST Legal Sex Female 2:47 PM EDT Gender Identity Female 05/06/2023 5:28 PM EST Sexual Orientation Not on file documented as of this encounter Plan of Treatment Upcoming Encounters Date Type Department Care Team (Late st Contact Info) Description 12/11/2024 12:10 PM EDT Routine [facility] [address] [place] [address] Brissa King CNM [address] [address] 12/18/2024 10:30 AM EDT Appointment [facility] - [address] [address] Lea Nguyen CNM, MPH [address] [address] documented as of this encounter Visit Diagnoses Not on filedocumented in this encounter Additional Health Concerns Infection Onset Date Last Indicated Resolved Time CoV-Risk 05/06/2023 05/06/2023 05/06/2023 6:14 PM EST COVID-19 Comment:Covid Recovered 05/06/2023 05/06/2023 05/25/2023 10:11 AM EST documented as of this encounter Care Teams Sewer Pipe Layer Relationship Specialty Start Date End Date Mayra Olivo MD [address] [place] [address] PCP - General Internal Medicine 09/18/22 documented as of this encounter Additional Source Comments The information contained in this document represents components of the legal health record. It is not the complete legal health record.[facility]
[2024-11-20 15:19] LABS: Appearance Urine Cloudy; Glucose Urine UA Negative (Negative); PH 5.5 (5.0-9.0); Specific Gravity - Urine 1.025 (1.005-1.025); UMIC TRIGGER UACC YES
[2024-11-20 15:24] LABS: UACC Culture Trigger YES
[2024-11-22 19:18] LABS: TS Negative Control Passed; TS Panel A 0; TS Panel B 0; TS Positive Control Passed; TSpotTB Negative (Negative)
== END 2024-11-20 14:28 | disposition home or self-care (01) ==
LOC: HO.LAB 14:27
PROVIDERS: PCP Internal Medicine; Visit Provider Internal Medicine
DX: Z11.1 Encounter for screening for respiratory tuberculosis (principal); E55.9 Vitamin D deficiency, unspecified; R30.0 Dysuria
CPT/HCPCS: 36415; 81001; 82306; 86481; 87086

== ENCOUNTER 2025-04-14 19:44 | Emergency (ER) | payer OTHER, SELFPAY ==
--- OUTSIDE RECORDS SUMMARY | 2025-04-11 13:30 | XMS_ITS | Encounter Summary ---
Author Organization [facility] Address [address] [place] [phone] Phone Care Team Providers Care Retirement Manager Name Role Phone Mayra Olivo MD Primary Care Provid er Reason for Visit * Treatment and Therapy Plan (Routine) - Authorized Specialty Diagnoses / Procedures Referred By Claus oh Referred To Contact Infusion Therapy Diagnoses Anemia affecting in third trimester Procedures ID IRON SUCROSE INJECTION Amy Magallon CNM [address] [facility], [address] [place] [address] Phone: tel: fax: [email or web address] [facility] Medical Infusion Center [address] [place] [id number] Phone: tel: fax: Referral ID Status Reason Start Date Expiration Date V isits Requested Visits Authorized [id number] Authorized 03/23/2025 03/23/2026 99 99 Encounter Details Date Type Department Care Team (Late st Contact Info) Description 04/11/2025 1:30 PM EST Infusion [facility] Medical Infusion Center [address] [place] [id number] Amy Magallon CNM [address] [facility], [address] [place] [address] [email or web address] Anemia affecting in third trimester (Primary Dx) Social History Tobacco Use Types Packs/Day Years Used Date Smoking Tobacco: Never Smokeless Tobacco: Never Alcohol Use Standard Drinks/Week Comments Not Currently [...] with a working camera? Not on file Intimate Partner Violence Answer Date R ecorded Are you denied basic needs s uch as food, clothing, or medical care? No 05/24/2023 In the past 12 months have y ou been in a relationship with a person who hurts, threatens, or tries to control you? No 05/24/2023 Are you denied basic needs s uch as food, clothing, or medical care? No 05/24/2023 In the past 12 months have y ou been in a relationship with a person who hurts, threatens, or tries to control you? No 05/24/2023 Estimated Date of Delivery Comme nts Yes 05/08/2025 Based on last me nstrual period of 08/01/2024 Sex and Gender Information Value Date Recorded Sex Assigned at Female 05/06/2023 5:28 PM EST Legal Sex Female 2:47 PM EDT Gender Identity Female 05/06/2023 5:28 PM EST Sexual Orientation Not on file documented as of this encounter Last Filed Vital Signs Vital Sign Reading Time Taken Comments Blood Pressure 128/79 04/11/2025 3:09 PM EST Pulse 81 04/11/2025 3:09 PM EST Temperature 36.2 C (97.2 F) 04/11/2025 2:00 PM EST Respiratory Rate 20 04/11/2025 3:09 PM EST Oxygen Saturation 99% 04/11/2025 3:09 PM EST Inhaled Oxygen Concentration - - Weight - - Height - - Body Mass Index - - documented in this encounter Progress Notes * Roxann Barnett RN - 04/11/2025 1:30 PM EST Pt here for Venofer infusion. Pt reports that she did have one episode of vomiting after her infusion last week. Pt encouraged to report to provider if she has this issue again. Pt reminded of signs of allergic reaction and potential side effects. Pt tolerated infusion well over 20 minutes with 30 minute observation with no issues. documented in this encounter Plan of Treatment Upcoming Encounters Date Type Department Care Team (Late st Contact Info) Description 04/17/2025 1:00 PM EST Infusion [facility] Infusion [address] [address] [address] [address] 04/19/2025 1:00 PM EST Infusion [facility] Infusion [address] [address] Amy Magallon [address] [address] 04/20/2025 10:30 AM EST Routine [facility] [address] [place] [phone] Brissa Aguillon, [address] [address] documented as of this encounter Visit Diagnoses Diagnosis Anemia affecting in third trimester- Primary documented in this encounter Administered Medications Inactive Administered Medications - up to 3 most recent administrations Medication Order MAR Action Action Date Dose Rate Site iron sucrose (VENOFER) 200 mg of false pass iron in sodium chloride 0.9% 100 mL IVPB-VTD 200 mg of false pass iron, Intravenous, Administer over 15 Minutes, at 400 mL/hr, Once, On Wed04/11/25 at 1445, For 1 dose, This preparation requires the use of a vial transfer device to attach the medication vial to the appropriate base fluid. Follow site drug administration guidelines in the selection, attachment and activation of the vial transfer device.Indications:Anemia affecting in third trimester Given 04/11/2025 2:23 PM EST 200 mg of false pass iron 400 mL/hr documented in this encounter Care Teams Retirement Manager Relationship Specialty Start Date End Date Mayra Olivo MD [address] [place] [address] PCP - General Internal Medicine 09/18/22 documented as of this encounter Additional Source Comments The information contained in this document represents components of the legal health record. It is not the complete legal health record.[facility]
--- OUTSIDE RECORDS SUMMARY | 2025-04-12 15:10 | XMS_ITS | Encounter Summary ---
Author Organization [facility] Address [address] [facility] [address] [place] [phone] Phone Care Team Providers Care Answering Service Agent Name Role Phone Mayra Olivo MD Primary Care Provid er Reason for Visit * Reason Comments Routine Visit Encounter Details Date Type Department Care Team (Late st Contact Info) Description 04/12/2025 3:10 PM EST Routine [facility] [address] [place] [address] Brissa Aguillon, [address] [address] [email or web address] Amy Magallon [address] [address] [place]: [id number] Social History Tobacco Use Types Packs/Day Years [...] Sign Reading Time Taken Comments Blood Pressure 120/80 04/12/2025 3:24 PM EST Pulse - - Temperature - - Respiratory Rate - - Oxygen Saturation - - Inhaled Oxygen Concentration - - Weight 85.3 kg (188 lb) 04/12/2025 3:24 PM EST Height - - Body Mass Index 28.59 07/16/2023 11:37 AM EDT documented in this encounter Progress Notes * Ewa Weiner MA - 04/12/2025 3:10 PM EST GBS and packet 7 and when to call sheet today. * Amy Magallon CNM - 04/12/2025 3:10 PM EST Supervision of normal Adrianny is very uncomfortable. States both heartburn and left side sciatic pain have completing comforts. The position that improves her heartburn makes the leg pain worse and vice/versa. --Encouraged pt to take TUMS which she says works well but she has been avoiding due to . Also encouraged diet changes --reviewed comforts for sciatica--pt has a support belt that she will start wearing again. --pt also c/o persistent cough x 2 mos. Productive. Lung sounds: CTA bilat. No sob. We discussed benefits of hot water with lemon and honey. Pt to see her PCP. Baby is very active. Pt denies vb, lof, ctxs GBS obtained and sent RAJ 1 wk Anemia affecting in third trimester Pt has biweekly iron infusion through next week. Hx of preeclampsia, prior , currently , first trimester normotensive Orders Placed This Encounter Group B Streptococcus (GBS), Culture Standing Status: Future Number of Occurrences: 1 Expected Date: 04/12/2025 Expiration Date: 04/12/2026 Detailed Specimen Description: vaginal/rectal combination swab Does the patient have penicillin allergy?: No Is the patient ?: Yes documented in this encounter Miscellaneous Notes * Assessment & Plan Note - Amy Magallon CNM - 04/12/2025 3:55 PM EST Associated Problem(s): Hx of preeclampsia, prior , currently , first trimester normotensive * Assessment & Plan Note - Amy Magallon CNM - 04/12/2025 3:54 PM EST Associated Problem(s): Anemia affecting in third trimester Pt has biweekly iron infusion through next week. * Assessment & Plan Note - Amy Magallon CNM - 04/12/2025 3:54 PM EST Associated Problem(s): Supervision of normal Arcelia is very uncomfortable. States both heartburn and left side sciatic pain have completing comforts. The position that improves her heartburn makes the leg pain worse and vice/versa. --Encouraged pt to take TUMS which she says works well but she has been avoiding due to . Also encouraged diet changes --reviewed comforts for sciatica--pt has a support belt that she will start wearing again. --pt also c/o persistent cough x 2 mos. Productive. Lung sounds: CTA bilat. No sob. We discussed benefits of hot water with lemon and honey. Pt to see her PCP. Baby is very active. Pt denies vb, lof, ctxs GBS obtained and sent RAJ 1 wk documented in this encounter Plan of Treatment Upcoming Encounters Date Type Department Care Team (Late st Contact Info) Description 04/17/2025 1:00 PM EST Infusion [facility] Infusion [address] [address] Amy Magallon CNM [address] [place] [phone] 04/19/2025 1:00 PM EST Infusion [facility] Infusion [address] [address] Amy Magallon CNM [address] [place] [address] 04/20/2025 10:30 AM EST Routine [facility] [address] [place] [address] [place] [address] Brissa Aguillon CNM [address] [place] [phone] Pending Results Name Type Priority Associated Diagnoses Date /Time Group B Streptococcus (GBS), Culture Microbiology Routine Encounter for supervision of other normal in third trimester 04/12/2025 3:55 PM EST documented as of this encounter Procedures Procedure Name Priority Date/Time Associated Diagnosis Comments GROUP B STREPTOCOCCUS (GBS), CULTURE Routine 04/12/2025 3:55 PM EST Encounter for supervision of other normal in third trimester documented in this encounter Visit Diagnoses Diagnosis Encounter for supervision of other normal in third trimester- Primary Anemia affecting in third trimester Hx of preeclampsia, prior , currently , first trimester documented in this encounter Care Teams Answering Service Agent Relationship Specialty Start Date End Date Mayra Olivo MD [address] [place] [address] PCP - General Internal Medicine 09/18/22 documented as of this encounter Additional Source Comments The information contained in this document represents components of the legal health record. It is not the complete legal health record.[facility]
[2025-04-14 19:50] VITALS: BP 130/65; PULSE 126; RESP 26; TEMP 37.6; O2SAT 98; BMI 28.5
--- NOTE | 2025-04-14 19:50 | ED_ITS ---
HPI - URI/Sore Throat General Chief Complaint: Upper Respiratory Symptoms Stated Complaint: flu like symptoms/body aches Time Seen by Provider: 04/14/25 21:02 Source: patient Mode of arrival: ambulatory Limitations: no limitations History of Present Illness ED Provider: Sofia Munoz PA-C HPI Narrative: ? Onset afternoon (several days ago). ? Symptoms: persistent cough, headache that ?doesn?t go completely away,? generalized arthralgia (?all my joints hurt?), fever with sweating episodes, markedly decreased appetite. ? Denies nausea, vomiting, or diarrhea. ? Hydration: drinking fluids and urinating normally. ? Has taken no medications for current symptoms (?not even Tylenol?). ? Exposures: children at home are also ill and were noted to develop tinnitus today. Patient is actively monitoring and treating them until they are seen. ? Social/ history: 36 weeks . course reported as good with no issues. History of significant smoking. ? Patient seeks evaluation to know ?what I?m dealing with? and consented to flu/COVID testing. Review of Systems: Constitutional: fever, malaise, sweating, decreased appetite. HEENT: headache; denies nausea/vomiting. Respiratory: cough; denies chest pain or shortness of breath. Genitourinary: normal urine output. Musculoskeletal: generalized joint pain. Neurologic: no focal deficits reported. Related Data Home Medications ?Medication ?Instructions ?Recorded ?Confirmed aspirin 81 mg tablet,delayed 162 mg PO DAILY 11/08/24 11/08/24 release docusate sodium 100 mg capsule 100 mg PO BID 11/08/24 11/08/24 Previous Rx's ?Medication ?Instructions ?Recorded oseltamivir 75 mg capsule (Tamiflu) 75 mg PO BID 5 day s #10 caps 04/14/25 Allergies Allergy/AdvReac Type Severity Reaction Status Date / Time No Known Allergies Allergy Verified 04/14/25 19:52 Review of Systems Review of Systems: Yes all other systems are reviewed and are negative PMFSH Past Medical History Attestation statement: The following information was validated with the patient. Source: old records reviewed and nursing notes reviewed Medical History Tiredness Depression Encounter for Depo-Provera contraception Onychomycosis of great toe General medical examination Bacterial vaginosis Surgical History No pertinent past surgical history Family History Family History Mother No problems noted. Father No problems noted. Social History Social History Housing: Apartment Alcohol intake: former Patient Tobacco Use Status: Never used Tobacco e-Cigarette/Vaping Use: Never Used Second Hand Smoke Exposure: No Advance Directives: No Advance Directives Information Provided: No Do you have a plan to hurt others: No Plan service: No Current occupational status: unemployed and student Cognitive needs: No Hearing needs: No Vision needs: No Physical Exam Exam: Exam: General: Appears in no acute distress, appears well nourished body habitus is overweight, appears stated age. No septic or ill-appearing. Vitals reviewed normal, PMH/Social and Surgical hx reviewed including allergies and current medications. - reviewed for prior visits here Head: Normocephalic, no abnormal lesions noted. Eyes: EOMI. ENMT: moist oral mucosa, no edematous nasal turbinates, erythema, or purulent d/c noted. No erythema, normal appearing and intact tympanic membrane. Hearing intact. No mastoid tenderness b/l. Normal posterior pharynx and structures. sin gle 2mm deep stone left upper tonsillar pole without erythema or edema, Uvula is midline no trismus. Neck: trachea midline, no lymphadenopathy. No nuchal rigidity. Cardiovascular: peripheral perfusion normal, S1 and S2 present, no M/R/G. RRR Respiratory: no respiratory distress, lungs clear to auscultation b/l, respirations full and symmetric. No flail chest, chest wall tenderness or crepitus noted. Speaking in full smooth sentences. Abdomen: nondistended Extremities: Warm and appear well perfused. Moving extremities without difficulty. Psych: Cooperative, calm. Neuro: Alert and orientated. No obvious focal deficits. Vital Signs: Vital Signs: Last Vital Signs Temp 99.0 F 04/14/25 21:11 Pulse 115 H 04/14/25 21:11 Resp 16 04/14/25 21:11 BP 0/0 L 04/14/25 21:11 Pulse Ox 99 04/14/25 21:11 O2 Del Method Room Air 04/14/25 21:11 BMI result Body Mass Index 28.5 Course Course Course Narrative: This is a RME preformed in triage by Sofia Munoz PA-C. Date:04/14/25, time?752 pm. Patient presents with flu like syndrome. ? Onset afternoon (two days ago). ? Symptoms: persistent cough, headache that ?doesn?t go completely away,? generalized arthralgia (?all my joints hurt?), fever with sweating episodes, markedly decreased appetite. ? Denies nausea, vomiting, or diarrhea. ? Hydration: drinking fluids and urinating normally. ? Has taken no medications for current symptoms (?not even Tylenol?). ? Exposures: children at home are also ill and were noted to develop tinnitus today. Patient is actively monitoring and treating them until they are seen. ? Social/ history: 36 weeks . course reported as good with no issues. History of significant smoking. ? Patient seeks evaluation to know ?what I?m dealing with? and consented to flu/COVID testing. Review of Systems: Constitutional: fever, malaise, sweating, decreased appetite. HEENT: headache; denies nausea/vomiting. Respiratory: cough. Cardiovascular: no chest pain or shortness of breath discussed. Gastrointestinal: denies vomiting or diarrhea. Genitourinary: normal urine output. Musculoskeletal: generalized joint pain. Neurologic: no focal deficits reported. PE: tachy, but hydrated lungs clear, throat clear, no lymphadenopathy, gravid abdomen Work UP:?covid/.flu swab, 36 weeks , will defer cxr Will defer full ROS and PE to treating provider. Patient will continued to be monitored in the interim. Medical Decision Making Medical Decision Making MDM Narrative: 38-year-old patient at 36 weeks gestation presents with acute febrile respiratory illness characterized by cough, headache, body aches, and decreased appetite. Rapid testing confirmed Influenza A; negative for Influenza B, COVID- 19, and RSV. No evidence of AOM/AOE, strep, tonsillitis, pneumonia or bronchitis. SHe is hydrated and able to maintain fluids. She has not taken any medications for symptoms and prefers to avoid them. Notable history includes significant smoking. Oseltamivir (Tamiflu) was prescribed due to and increased risk of influenza-related complications; chest X-ray was deferred to avoid exposure. Plan includes monitoring for influenza and - related complications and recommending close follow-up with OB provider. Differential Diagnosis Differential Diagnoses: The differential diagnosis associated with the presentation includes See [facility] Admission/Observation Consideration of admission/observation: Escalation of care including admission/observation considered Lab Data [facility] Lab Attestation statement: I reviewed the patient's lab results. Labs: Lab Results 04/14/25 Range/Units 20:00 Influenza Type A (PCR) POSITIVE A (Negative) Influenza Type B (PCR) NEGATIVE (Negative) RSV RNA Qual (PCR) NEGATIVE (Negative) SARS-CoV-2 RNA (RT-PCR) NEGATIVE (Negative) Tests considered The following testing was considered but not selected: See MDM Prescription Management I considered prescription management with: Antiviral Chronic Conditions Patient?s care impacted by: Other Social Determinants Patient?s care significantly limited by Social Determinants of Health including: Other Social Determinant of Health Discharge Plan Discharge Clinical Impression: Influenza A Patient Disposition: Home, Self-Care Instructions: Influenza (DC) Additional Instructions: You were seen in the clinic for your fever, cough, congestion, and muscle aches.? Your exam was reassuring. Your flu swab was positive.? Rest, stay well hydrated. Take Tylenol and/or Motrin as needed for fever or muscle aches. Please be re-evaluated if you are not starting to feel better or if still having fevers after 5-7 days of illness You should avoid crowds, public places, school, hotels, elderly, infants, or people with compromised immune systems until 24 hours after your fevers stop and your symptoms are improved. Go to the ED if you develop a severe headache, neck stiffness, intractable vomiting, trouble breathing, shortness of breath, or any other new, concerning symptoms.? Prescriptions: New oseltamivir [Tamiflu] 75 mg capsule 75 mg PO BID 5 Days Qty: 10 0RF No Action aspirin 81 mg tablet,delayed release (DR/EC) 162 mg PO DAILY docusate sodium 100 mg capsule 100 mg PO BID Referrals: Mayra Olivo MD [Primary Care Provider, Internal Medicine] Clinical Impression: Influenza A Interventions: ED Discharge Assessment Last Done: 04/14/25 21:11 Discharge Date/Time: 04/14/25 21:12 Print Language: Hebrew
[2025-04-14 20:44] LABS: Resp Syncy Virus RNA Qual PCR NEGATIVE (Negative); SARS COV2 PCR INHOUSE NEGATIVE (Negative)
[2025-04-14 21:00] VITALS: PULSE 115; RESP 16; TEMP 37.2; O2SAT 99
--- OUTSIDE RECORDS SUMMARY | 2025-04-14 21:10 | XMS_ITS | Patient Health Record ---
Author Organization [facility] In . Address [address], [place] [id number] Care Team Providers Care [employer]er Name Role Phone Yessenia Whitney Primary Care Provider Kendall Denise Unavailable [phone] Reason For Referral No Information Medications Medication SIG (Take, Route, Frequency, Duration) Notes Start Date End Date Status Acetaminophen 500 MG Tablet 2 tab(s) orally every 6 hours; Duration: 5 days 05/11/2019 Unknown Loratadine 10 MG Tablet 1 tab(s) orally once a day 05/11/2019 Unknown Triamcinolone Acetonide 0.5 % Cream 1 sumaya applied topically 2 times a day; Duration: 7 day(s) 05/11/2019 Unknown clomiPHENE Citrate 50 MG Tablet 2 tab(s) orally once a day; Duration: 5 day(s) 06/24/2019 Unknown RANITIDINE 150 MG TABLET 1 TAB(S) ORALLY 2 TIMES A DAY *Please review for potential replacement for e-prescription and drug interaction check* 05/11/2019 Unknown Provera 10 MG Tablet 1 tab(s) orally onc e a day; Duration: 10 day(s) 06/24/2019 Unknown Mdnbmwri-Bwl-Mj-FA 0.8 MG Tablet 1 tab(s) orally once a day; Duration: 30 day(s) 04/14/2019 Active Provera 10 MG Tablet 1 tab(s) orally onc e a day; Duration: 10 day(s) 12/12/2018 Unknown Acetaminophen 325 MG Tablet 2 tab(s) orally 3 times a day; Duration: 5 days 01/21/2019 Unknown Ciclopirox 8 % Solution 1 sumaya applied topically once a day; Duration: 30 days 11/08/2019 Unknown Diflucan 150 MG Tablet 1 tab(s) orally once; Duration: 1 dose(s) 11/08/2019 Unknown metroNIDAZOLE 0.75 % Gel 1 appful intravaginally once a day (at bedtime); Duration: 5 day(s) 11/08/2019 Unknown clomiPHENE Citrate 50 MG Tablet 1 tab(s) orally once a day; Duration: 5 day(s) 02/10/2019 Unknown Immunizations Vaccine Route Administration Date Status Comme nts Tdap (adult) IM Intramuscular 01/24/2019 Administered well tolerated with no reaction. Influenza,Quadriv alent,single dose,preservative free,>=6mos IM Intramuscular 01/24/2019 Administered well tolerated with no reaction. Social History Tobacco Use: Social History Observation Description Date Details (start date - stop date) Never Smoker NA - NA Social History Sexual History: Social Info Question Answer Notes Sexual History Had sex in the past 12 months (vaginal, oral, or anal)? Yes with Men only Use Protection? No STD prevention strategies discussed: Condoms Have you ever had an STD? No LMP: 04/08/2019 Family Planning Do you want to have a baby? Yes Patient educated on the following: taking vitamins, taking folic a onel, no smoking, no drug use Alcohol: Social Info Question Answer Notes Alcohol Screen: (18 and above) Did you h ave a drink containing alcohol in the past year? No Points: 0 Interpretation: Negative Comp Health Assessment: Social Info Question Answer Notes Does patient have enough income to pay for food and rent? : Yes Household occupants: Adults: 1 Is patient/family homeless o r at risk for losing permanent housing? : No What grade is the patient currently in? Response: 11th Grade Housing: : apartment Are you or family members under psychiatric treatment at this time? : No (12 and above) Sexual Orientation: Do you identify as: straight (not lesbian or alejandre) In the past month, have you or your family had difficulty in obtaining food? : No Yazdanism or spiritual belief? : advent Is patient currently feeling unsafe in the home? : No Does patient live alone and need social support? : No Does patient want to appoint a health care proxy to make medical decisions in case they are unable to do so? N/A for minors : No How many times a week do you exercise? : never Can patient obtain medicatio ns and medical equipment as needed? : Yes Where were you born? Location: [facility] How many times a day do you brush your teeth? (N/A for under 6 months old) : 2 Are you exposed to second coleman nd smoke? : No (12 and up) Gender Identity: Do you identify as: femal e Living situation: : patient lives with family members Did you see a dentist in the past 6 months? (N/A under 6 mos old) : No Do you or any family members regularly use alcohol, or prescription or O-T-C? : No Does patient have difficulty traveling to medical appointments? : No Does patient have active Health Insurance? : Yes Does patient have any functional barriers or cultural beliefs that would affect their care? : No Is patient recently discharg ed from an institution? : n/a Tobacco Use: Social Info Question Answer Notes Smoking: Are you a: never smoker Additional Details Category Social Info Options Details Comp Health Assessment: Occupation specify: n/a Problems Problem Type SNOMED Code ICD Code Onset Dates Problem Status W/U Status Risk Notes Problem Polycystic ovary syndrome (disorder) (805725722) PCOS (polycystic ovarian syndrome) (E28.2) Active confirmed Problem Missed period (46165363) Missed menses (N92.6) Active confirmed Plan Of Treatment Pending Test Test Name Order Date PROGESTERONE, SERUM 06/24/2019 HIV TEST OFFERED and 7 points of informa tion provided 12/20/2019 NOVEL CORONAVIRUS COVID-19 Nasal/NASOPHA RYNX 12/20/2019 CBC w/DIFF, PLATELET CT. 01/21/2019 Insurance Providers Payer Name Payer Address Payer Phone Subscriber Number Group Number Insured Name Patient Relationship to Insured Coverage Start Date Coverage End Date [facility] MEDICAID [address] [place] [address] JOSEPH BOWEN Self - patient is the insured MEDICAID REGULAR [address] [place] [address] JOSEPH BOWEN Self - patient is the insured 9 Medical (General) History Medical History History ICD Code PCOS Surgical History Surgery Date(Month/Year) Hospitalization History Reason Date(Month/Year) child 01/2015
--- OUTSIDE RECORDS SUMMARY | 2025-04-14 21:10 | XMS_ITS | Encounter Summary ---
Author Organization [facility] Address [address] [facility] [employer] [address] [place] [phone] Phone Care Team Providers Care Lan Administrator Name Role Phone Mayra Olivo MD Primary Care Provid er Encounter Details Date Type Department Care Team (Late st Contact Info) Description 11/05/2022 Transcribe Orders [address] [place] [address] Brissa King CNM [address] [facility], [address] [place] [address] [email or web address] Social History Tobacco Use Types Packs/Day Years [...] Info) Description 04/17/2025 1:00 PM EST Infusion [facility] [address] [place] [address] Amy Magallon, [address] [address] 04/19/2025 1:00 PM EST Infusion [facility] [place] [address] [place] [address] Amy Magallon, [address] [address] 04/20/2025 10:30 AM EST Routine [facility] [address] [place] [address] Brissa Aguillon, [address] [address] documented as of this encounter Visit Diagnoses Not on filedocumented in this encounter Additional Health Concerns Infection Onset Date Last Indicated Resolved Time CoV-Risk 05/06/2023 05/06/2023 05/06/2023 6:14 PM EST COVID-19 Comment:Covid Recovered 05/06/2023 05/06/2023 05/25/2023 10:11 AM EST documented as of this encounter Care Teams Lan Administrator Relationship Specialty Start Date End Date Mayra Olivo MD [address] [place] [address] PCP - General Internal Medicine 09/18/22 documented as of this encounter Additional Source Comments The information contained in this document represents components of the legal health record. It is not the complete legal health record.[facility]
[2025-04-14 21:11] VITALS: BP 0/0; PULSE 115; RESP 16; TEMP 37.2; O2SAT 99
--- OUTSIDE RECORDS SUMMARY | 2025-04-14 21:11 | XMS_ITS | Clinical Summary ---
Author Organization [employer] Formerly [facility] Address [address] [address] Phone Care Team Providers Care Emergency Dispatcher Name Role Phone Mayra Olivo MD Primary Care Provid er Allergies No known active allergies Medications aspirin 81 MG EC tabletIndication s:Encounter for supervision of other normal in first trimester Take 2 tablets (162 mg total) by mouth daily. 60 tablet 2 Active Additional Information Patient not taking.Reported on 04/12/2025 PNV no.95/ferrous fum/folic ac ( ORAL) Take by mouth. Active ferrous sulfate 325 mg (65 mg [employer] iron) tablet Take 1 tablet (325 mg total) by mouth daily with breakfast. Take w/orange juice or vitamin C-rich food. Avoid taking at same time as vitamins or calcium-contain ing foods. 90 tablet 2 Active Additional Information Patient not taking.Reported on 04/12/2025 Active Problems Problem Noted Date Diagnosed Date Vision changes 03/03/2025 Assessment & Plan (03/03/2025 2:02 PM EDT): Arcelia reports seeing lightning like vision change with sneezing of coughing. It last a short time and goes away with closing her eyes. Denies GREEN, RUQ pain. BP normal HELLP labs ordered for added reassurance Anemia affecting in third trimester Overview (03/02/2025): 02/16 (28wks): hgb 8.9 Anemia panel - vit B12/folate wnl, Tsat 7%, ferritin 9 Iron supplement (rx sent)* Consider IV iron* Hgb < 9 OR >34 weeks OR at risk for delivery in <4 weeks: Full anemia panel within 1-2 weeks Empiric PO iron (target 60 mg elemental iron; consider every other dosing for increased absorption/tolerability) Consider IV iron* Hgb < 10 Full anemia panel within 1-2 weeks Empiric PO iron (target 60 mg elemental iron; consider every other dosing for increased absorption/tolerability) If iron deficiency is confirmed (ferritin <30 OR TSat <14% OR chronic disease state +TSat <20%, even if ferritin >30), continue PO iron x 4 weeks and recheck CBC; if Hgb does not improve by at least 1 g/dL, review compliance and consider IV iron* If iron deficiency is not present, work up and treat as indicated, or refer Hgb > or = 10 Continue PO iron (target 60 mg elemental iron; consider every other dosing for increased absorption/tolerability) x 4 weeks and recheck CBC along with full anemia panel; if Hgb drops below 10, review compliance and consider IV iron* If iron deficiency is not present, work up and treat as indicated, or refer Full anemia panel: CBC Ferritin TIBC Serum iron Folate B12 Reticulocyte count *When ordering an iron infusion, send a message to sp[employer] to see if prior auth is needed. Reference: [facility] Assessment & Plan (04/12/2025 3:54 PM EST): Pt has biweekly iron infusion through next week. Assessment & Plan (04/07/2025 5:35 PM EST): Had one Iron infusion which did cause some brief nausea and vomiting but she felt like she is feeling so much better after that Iron infusion. We discussed with [facility] she is supposed to have 4-5 doses. Will send a message to get her scheduled for a repeat dose. She declines a Rx for anti nausea med Assessment & Plan (03/16/2025 1:18 PM EST): Adrianny taking iron sporadically--maybe twice weekly. Would like iron infusion and Heme consult. Orders placed Encouraged iron rich foods Assessment & Plan (03/03/2025 1:59 PM EDT): Arcelia has been taking Iron daily. Will go to lab today for Iron studies. She is wondering why she has significant anemia. She reports that when she was a teenager her hemoglobin went down to 6 and she required Iron infusions - was told it was related to poor nutrition. I reviewed it could be helpful to do a hematology referral and as I did not see a hemoglobin electrophoresis in her chart I added that. Arcelia wants to start with labs before we decide about hematology referral Vulvar fissure 02/16/2025 Assessment & Plan (02/16/2025 8:50 PM EDT): Likely due to fragile area HSV swab sent to R/O HSV but low suspicion Recommend vaseline as a barrier for fissure to allow for healing Vulvar irritation 02/16/2025 Assessment & Plan (02/16/2025 8:50 PM EDT): Arcelia reports increased vaginal discharge. Wears liners due to discharge and possible urinary leakage. Feels like there may be a slight odor but is not sure if it is related to that. O: External genitalia: No erythema noted, on mons there is a small 1 mm fissure in hair bearing area Vagina: thin, bubbly discharge noted A: Vulvar irritation R/O inection P: Send vaginitis panel Recommended trying to take breaks from pantiliners to air out or to try reusable period underwear or something similar Await results to decide on treatment Pain in symphysis pubis during 025 Assessment & Plan (12/25/2024 7:56 PM EDT): Arcelia is starting to feel symphysis pubis again this . Would like Rx for support belt. Rx given. She will go to medical supply and pick it up. Supervision of normal 09/27/2024 Overview (04/07/2025): CNM Group PN care? No screening cfDNA Baby ASA? Yes Rh Pos GC/Chlam Neg/neg PAP 2024 NIL/neg Flu 01/19/25 COVID-19 declines Hgb 8.9 GTT 94 Repeat RPR neg Tdap 03/02/25 RSV done EPDS 2 PPBC Desires BTL if she has C/S- MH consent signed 04/06/25 (in media) GBS * Feeding Plan * Baby girl Yury Partner, Renard Assessment & Plan (04/12/2025 3:57 PM EST): Arcelia is very uncomfortable. States both heartburn [...] GBS obtained and sent RAJ 1 wk Assessment & Plan (04/07/2025 5:40 PM EST): Arcelia is a 34 y.o. at 35w3d doing well. Denies VB/LOF/Ctxs currently. + FM. Had increased contractions the other evening which eventually dissipated. We reviewed s/s of PTL and when to call. RSV today. Desires BTL if she has C/S- MH consent signed 04/06/25 Assessment & Plan (03/16/2025 1:20 PM EST): Arcelia feeling tired but well. Would like RSV NV Baby is moving well Denies vb, lof, ctxs RAJ 2 wks Assessment & Plan (03/03/2025 2:01 PM EDT): Arcelia is a 34 y.o. at 30w3d doing well. Denies VB/LOF/Ctxs. + FM. TDAP done today. EPDS 2, with no to Q10 Assessment & Plan (02/16/2025 8:51 PM EDT): Arcelia is a 34 y.o. at 28w3d doing well. Denies VB/LOF/Ctxs. + FM. Will go to lab for 28 week labs today Assessment & Plan (01/19/2025 3:22 PM EDT): Arcelia is a 34yo at 24w3d - active baby; denies VB Feeling well overall. Did have an isolated episode of dizziness during nursing rotation the other day. Denies syncope, palpitations, but did have to sit down. This has never happened to her before. Discussed possible causes. D/t isolated episode, possibly dehydration, low blood sugar, time standing, physiologic changes of . Discussed increased hydration, small nutritious snacks throughout the day, exercise. Warning signs & calling guidelines reviewed. If sx persist, consider cardiology workup. 3T labs ordered for NV Received flu vacc RAJ in 4wks or prn Assessment & Plan (12/25/2024 7:56 PM EDT): Arcelia is here with her family. She is tired and uncomfortable but ok. She is starting to feel movement. Has anatomy scan scheduled. No other questions or concerns. Assessment & Plan (12/11/2024 1:00 PM EDT): Here with her partner and her kids. She notes she is starting to have some pain in symphysis pubis - had this with previous but not until the very end, so she is feeling worried. We discussed body mechanics and avoiding straining the pelvis, also discuss PT referral and SI joint stabilizer belt. She will consider all of these and let us know if it worsens. Feeling regular movement. Has Level II scheduled. Plans to do AFP today. Assessment & Plan (11/14/2024 11:27 AM EDT): Arcelia is a 34yo at 14w6d here w/Renard & son - denies VB, cramping Feeling alright; still having some nausea and vomiting more recently when her stomach is empty - discussed comfort measures UC collected Discussed opt for AFP at [facility], which she would like to do - ordered; will need paper to take to the lab at [facility] Warning signs & calling guidelines reviewed RAJ in 4wks or prn History of anemia 03/30/2023 Assessment & Plan (05/24/2023 7:23 AM EST): Pt reported to not be taking iron. CBC and type and screen at admission IV to be placed at admission Assessment & Plan (04/26/2023 5:44 PM EST): Continues supplementation. Assessment & Plan (04/05/2023 12:40 PM EST): Patient having ferritin level drawn today with 3hr GTT. Ferrous sulfate ordered for patient on 03/29/23. 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 They are not carriers of the same disorder. Addendum to GC note scanned to chart with these details. Assessment & Plan (11/14/2024 11:27 AM EDT): Level II anatomy US ordered Assessment & Plan (01/20/2023 1:16 PM EDT): Level 2 completed 01/11/23, normal. 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 They are not carriers of the same disorder. Assessment & Plan (12/17/2022 10:54 AM EDT): Will reach out to [facility] for carrier screening report and follow up at next visit on partner results. Assessment & Plan (11/19/2022 1:43 PM EDT): Genetics consult yesterday at [facility], records requested. Arcelia had additional labwork done there (sounds like rose carrier screen per her report). She states Level II was recommended - this was ordered today. Hx of preeclampsia, prior pr egnancy, currently , first trimester 10/19/2022 Overview (09/27/2024 4:26 PM EDT): [facility] HELLP labs, P/C ratio -- WNL Baby ASA at 12-14 wks --pt accepts *Pt induced at 36wks in P1 for pre-e with severe features. In P2, in 2023: Developed GHTN PP, went home on nifedipine >>OVERVIEW FOR GESTATIONAL HYPERTENSION WITHOUT SIGNIFICANT PROTEINURIA, WRITTEN ON 09/27/2024 4:25 PM BY PATI NGUYEN CNM, MPH Dx: hypertension in P2 Lab abnormalities: None Medications started (include dose and date started): 05/26/23 Nifedipine started 0:45 30 mg first dose 05/31/23 Nifedipine discontinued - normotensive in visit with daily headaches following nifedipine. F/u for BP check in 1 wk Assessment & Plan (04/12/2025 3:55 PM EST): normotensive Assessment & Plan (09/27/2024 4:26 PM EDT): >>ASSESSMENT AND PLAN FOR HX OF PREECLAMPSIA, PRIOR , CURRENTLY , FIRST TRIMESTER WRITTEN ON 05/24/2023 7:21 AM BY INO HARRIS, RN BP currently wnl >>ASSESSMENT AND PLAN FOR GESTATIONAL HYPERTENSION WITHOUT SIGNIFICANT PROTEINURIA, WRITTEN ON 05/25/2023 8:05 AM BY PATI NGUYEN CNM, MPH >>ASSESSMENT AND PLAN FOR GESTATIONAL HYPERTENSION, THIRD TRIMESTER WRITTEN ON 05/24/2023 6:10 PM BY BRISSA AGUILLON CNM Diagnosed during labor/ Mild range BPs with normal HELLP labs Asymptomatic For now will continue to monitor BPs and for symptoms of Pre-E Assessment & Plan (05/10/2023 11:55 AM EST): Virtual visit today d/t covid. Pt denies visual changes or RUQ pain. Has been having headaches on/off since testing positive for covid last week, but finds headaches resolve with rest and tylenol. Rev s/sx PEC and when to call. Assessment & Plan (12/17/2022 10:57 AM EDT): Junior is taking daily baby aspirin. Normotensive today. Assessment & Plan (11/19/2022 1:40 PM EDT): Discussed rationale for baby ASA and Rx sent to pharmacy, she will start this now. Assessment & Plan (11/05/2022 10:16 AM EDT): Pt to have baseline labs drawn today. We discussed benefits of baby ASA, pt agrees. History of PCOS 10/19/2022 Overview (12/13/2024): Diagnosed in [place]. Was previously on control to regulate menses. Pt states ultrasound confirmed diagnoses along with clinical symptoms. A1C added to initial labs -1st trimester Hgb A1C - 5.0% - If on Metformin for insulin resistance/DM, continue in Assessment & Plan (11/14/2024 11:27 AM EDT): Baseline Ha1c ordered Depression with anxiety 10/19/2022 Overview (09/27/2024): 2024--reports this is stable, no current therapy/meds. No PPD in 2023. Was seeing a therapist at [facility] 2021. Unsure of the name was on medication for a year. Currently feels stable- no longer taking medications. Assessment & Plan (05/24/2023 7:21 AM EST): Consider early 2 wk pp visit Assessment & Plan (04/05/2023 12:38 PM EST): EPDS 7 today, feeling stable. Estimated Date of Delivery Comme nts Yes 05/08/2025 Based on last me nstrual period of 08/01/2024 Resolved Problems Problem Noted Date Diagnosed Date Resolved Date state 05/27/2023 09/27/2024 Normal intrauterine , antepartum 05/24/2023 05/27/2023 Normal labor 05/24/2023 05/27/2023 Assessment & Plan (05/24/2023 7:27 AM EST): Regular diet Encourage ambulation IV getting placed CBC ordered, type and screen Intermittent monitoring Pt desiring comfort measures but wanting to be able to have the strength to push, NO4 at this time Encounter for supervision of normal in third trimester 10/19/2022 05/27/2023 Overview (05/18/2023): CNM No OB-CMI score has been filled out for this encounter. Group PN care? no screening low risk cfDNA Baby ASA recommended Rh pos GC/Chlam neg PAP 01/2021 NILM Flu rec'd fall 2022 at [facility] COVID-19 vaccinated needs booster--counseled Hgb 8.6 GTT 173 - 3hr normal Repeat RPR neg Tdap 04/05/23 EPDS * PPBC POP GBS * Feeding Plan Breast Pt is to first cousin--referred to genetics. Assessment & Plan (05/18/2023 12:07 PM EST): Arcelia is feeling better after having Covid last week, just a residual infrequent cough. GBS collected today. No LOF/VB/Cxn. Was concerneced about DFM yesterday but when FOB assisted pt with counting there were many kicks. Teachings provided about FKC. Discussed pain management options for labor, she reports she would like to try without medications but is open to the epidural and NO4. Normotensive today. Pre-e warning signs reviewed as well as when to call/come in for labor. Assessment & Plan (05/10/2023 11:54 AM EST): Arcelia is a 32yo at 37w1d. Presents to virtual zoom visit today as she tested positive for Covid-19 on 05/06/22, was seen in ED on that day. Explains she was having fevers the two days prior to that and then fevers resolved following 05/06/22. She is also having some congestion, coughing, headaches, and body aches. She notes that the headaches resolve with tylenol. She denies ctx, vb, lof, or dfm. Has been feeling that resting is the one thing that makes her feel the best as she recovers from covid, also been enjoying cold drinks and takes tylenol prn. Disc other comfort measures. Pt states she is starting to wonder about the possibility of spontaneous labor and what to expect. Pt is now further in than she has experienced before and was induced with prior labor. We disc qualities of labor and what to expect and when to call. Disc GBS NV. Rev T3 warning signs, including s/sx PEC. RTO 1 wk. Assessment & Plan (04/26/2023 5:52 PM EST): Arcelia is doing well but having a lot of pelvic pressure. Discussed referral for pelvic floor physical therapy for after . She would like that. Comfort measures reviewed. Baby is moving well. Assessment & Plan (04/05/2023 12:38 PM EST): Arcelia is a 32yo at 32w1d who presents to routine OB visit today. Laying down on exam today upon entry to room, pt reports to be feeling weak after 3hr GTT drink just prior to her visit. Otherwise has been doing fairly well. Is noticing that her vulva is feeling more swollen and she has to tuck her labia minora into her underwear, sometimes feels uncomfortable to sit. External vulva exam today normal, mild diffuse swelling noted. TDAP today. EPDS 7. Reviewed when to call. RTO 2 wks. Assessment & Plan (03/19/2023 11:48 AM EST): Arcelia is feeling well. Baby is very active. She denies s/sx of ptl. 3T labs in process. We discussed circ--they are considering for this baby as their older son had to have circ at age 4 due to fusion. Recommended discussing with pedi after baby is born. tdap at [facility] RAJ 2 wks Assessment & Plan (02/16/2023 11:50 AM EDT): Arcelia is struggling with discomforts. She is having a really hard time tolerating meals. Feels like she feels uncomfortably full after meals, like there is a rock in her stomach. Also feels some acid reflux with burning in her chest. Reviewed dietary recommendations, remain upright after meals. Suggested a trial of omeprazole, which she accepts. She has rec'd flu shot. Discussed GTT/CBC/RPR, she will do these prior to n.v. Assessment & Plan (01/20/2023 1:11 PM EDT): Arcelia is a 32yo who presents to return OB visit today at 21w3d. She is here with partner, Renard. Pt had level II Anatomy u/s on 01/11/23, reviewed normal results with patient, measuring c/w dating, anterior placenta. Reports to be feeling well, feels tired a lot, napping during day. Reports to be taking PNV daily, denies anemia in prior preg. Reviewed when to call. RTO 4 wks. Assessment & Plan (12/17/2022 10:52 AM EDT): Junior is here with her Renard. Nausea has significantly improved. Level 2 anatomy scheduled for 01/11, will schedule RAJ to follow. Assessment & Plan (11/19/2022 1:42 PM EDT): Here with Renard. Has been feeling very fatigued and nauseated. Was seen at [facility] for IV fluids due to dehydration recently. Vit B6 and doxylamine were recommended but she did not receive Rx. These were discussed and prescribed today. Reviewed dietary recommendations as well, as she reports not eating very frequently. Reviewed normal cfDNA and other routine labs. Assessment & Plan (11/05/2022 10:12 AM EDT): Arcelia is a 32yo @ 10+4 wks. Here for FOB Pt c/o a lot of nausea and some vomiting. Has to sit very still after meals and not talk in order to keep food down. Went to [place] ED and was rx'd unisom and vit B6 but didn't want to start until CN approved meds. We discussed comforts. Pt c/o vaginal discharge--white, not itchy, no odor. Wetmount done: neg clue, neg yeast, neg trich, neg whiff Has US scheduled for today after visit. Gc/CT swab obtained. Limited PE completed. RAJ 2 wks. Encounters Date Type Department Care Team Description 04/12/2025 3:10 PM EST Routine [facility] [address] [place] [address] Brissa Aguillon CNM Starling, Tara Sri, CNM [place]: 36w2d 04/11/2025 1:30 PM EST Infusion [facility] [address] [place] [id number] Amy Magallon CNM Anemia affecting in third trimester (Primary Dx) 04/06/2025 10:50 AM EST Routine [facility] [address] [place] [address] Brissa Aguillon CNM [place]: 35w3d 04/06/2025 Telephone [facility] [address] [place] [address] [place] [address] Brissa Aguillon CNM Iron infusion 03/23/2025 1:00 PM EST Infusion [facility] [address] [place] [id number] Amy Magallon CNM Anemia affecting in third trimester (Primary Dx) 03/16/2025 12:10 PM EST Routine [facility] [address] [place] [address] [place] [address] Amy Magallon CNM [place]: 32w3d 03/16/2025 Telephone [facility] [address] [place] [address] [place] [address] Amy Magallon CNM Iron infusion; PreCert Needed 03/02/2025 12:14 PM EDT - 03/02/2025 11:59 PM EDT Hospital Encounter [facility] [place] [address] [place] [address] Brissa Aguillon CNM Discharge Disposition: Home or Self Care 03/02/2025 11:10 AM EDT Routine [facility] [address] [place] [address] Brissa Aguillon CNM GA: 30w3d 02/18/2025 Orders Only [facility] - Virtual Department [address] [place] [id number] Radha Black CNM History of anemia (Primary Dx); Encounter for supervision of other normal in third trimester; Anemia affecting in third trimester 02/16/2025 10:19 AM EDT - 02/16/2025 11:59 PM EDT Hospital Encounter [facility] [address] [place] [address] Radha Black CNM Discharge Disposition: Home or Self Care 02/16/2025 9:30 AM EDT Routine [facility] [address] [place] [address] [place] [address] Brissa Aguillon CNM [place]: 28w3d 01/31/2025 Telephone [facility] [address] [place] [address] [place] [id number] Federica Moreira MA Forms & Paperwork (/) 01/19/2025 2:10 PM EDT Routine [facility] [address] [place] [address] [place] [address] Radha Black CNM [place]: 24w3d from Last 3 Months Immunizations Immunization Administration Dates Next Due Influenza Quadrivalent MDCK Preservative Free IM 04/01/2022 Influenza Quadrivalent Preservative Free IM /0 12/2020 Influenza Recombinant Trival ent Preservative Free IM 01/19/2025 RSV Vaccine (bivalent) 04/06/2025 Tdap 03/02/2025,04/05/2023,10/27/2021 Family History Medical History Relation Comments No Known Problems Brother 1 No Known Problems Brother 2 No Known Problems Maternal Grandfather No Known Problems Maternal Grandmother duri ng delivery of twins in 20s Heart disease Paternal Grandfather Diabetes Paternal Grandmother Hypertension Paternal Grandmother No Known Problems Sister 1 No Known Problems Sister 2 No Known Problems Sister 3 Relation Status Comments Brother 1 Alive Brother 2 Alive Father Alive Maternal Grandfather Alive Maternal Grandmother Mother Alive Paternal Grandfather Paternal Grandmother Alive Sister 1 Alive Sister 2 Alive Sister 3 Alive Social History Tobacco Use Types Packs/Day Years Used Date Smoking Tobacco: Never Smokeless Tobacco: Never Tobacco Cessation:Counseling Given: Not Answered Alcohol Use Standard Drinks/Week Comments Not Currently [...] PM EST Sexual Orientation Not on file Last Filed Vital Signs Vital Sign Reading Time Taken Comments Blood Pressure 120/80 04/12/2025 3:24 PM EST Pulse 81 04/11/2025 3:09 PM EST Temperature 36.2 C (97.2 F) 04/11/2025 2:00 PM EST Respiratory Rate 20 04/11/2025 3:09 PM EST Oxygen Saturation 99% 04/11/2025 3:09 PM EST Inhaled Oxygen Concentration - - Weight 85.3 kg (188 lb) 04/12/2025 3:24 PM EST Height 172.7 cm (5' 8 ) 07/16/2023 11:37 AM EDT Body Mass Index 28.59 07/16/2023 11:37 AM EDT Plan of Treatment Upcoming Encounters Date Type Department Care Team (Late st Contact Info) Description 04/17/2025 1:00 PM EST Infusion [facility] [address] [address] [address] [address] 04/19/2025 1:00 PM EST Infusion [facility] [address] [address] [address] [address] 04/20/2025 10:30 AM EST Routine [facility] [address] [place] [address] [place] [address] Brissa Aguillon, [address] [address] Health Maintenance Due Date Last Done Comments DEPRESSION SCREENING 2004 COVID-19 VACCINE ( season) 2025 11/17/2021, 02/12/2021, 01/16/2021 PAP SMEAR 10/17/2027 10/16/2024 Adult Td,Tdap Booster 03/02/2035 03/02/2025 , 04/05/2023, 10/27/2021 HEPATITIS C SCREENING Completed 10/16/2024 , 10/16/2024, 11/05/2022, Additional history exists HIV ONE-TIME SCREENING (18-65 YEARS) Completed 10/16/2024 INFLUENZA VACCINE Completed 01/19/2025, , 04/01/2022, Additional history exists SMOKING STATUS SCREENING (Once After 26 Yrs) Completed 03/02/2025 RSV VACCINE Completed 04/06/2025 HEPATITIS A VACCINES Aged Out No long er eligible based on patient's age to complete this topic HIB VACCINES Aged Out No longer eligi ble based on patient's age to complete this topic MENINGOCOCCAL VACCINES (ACWY) Aged Out No longer eligible based on patient's age to complete this topic MENINGOCOCCAL VACCINES (B) Aged Out N o longer eligible based on patient's age to complete this topic PNEUMOCOCCAL VACCINES (0-49 years) Aged Out No longer eligible based on patient's age to complete this topic Medical Devices Not on file Procedures Procedure Name Priority Date/Time Associated Diagnosis Comments GROUP B STREPTOCOCCUS (GBS), CULTURE Routine 04/12/2025 3:55 PM EST Encounter for supervision of other normal in third trimester FERRITIN Routine 03/02/2025 12:23 PM EDT Encounter for supervision of other normal in third trimester Anemia affecting in third trimester IRON AND IRON BINDING CAPACITY Routine 03/02/2025 12:23 PM EDT Encounter for supervision of other normal in third trimester Anemia affecting in third trimester FOLATE Routine 03/02/2025 12:23 PM EDT Encounter for supervision of other normal in third trimester Anemia affecting in third trimester VITAMIN B12 Routine 03/02/2025 12:23 PM EDT Encounter for supervision of other normal in third trimester Anemia affecting in third trimester RETICULOCYTES Routine 03/02/2025 12:23 PM EDT Encounter for supervision of other normal in third trimester Anemia affecting in third trimester CBC Routine 03/02/2025 12:23 PM EDT Vision changes ASPARTATE AMINOTRANSFERASE (AST) Routine 03/02/2025 12:23 PM EDT Vision changes ALANINE AMINOTRANSFERASE (ALT) Routine 03/02/2025 12:23 PM EDT Vision changes CREATININE WITH ESTIMATED GLOMERULAR FILTRATION RATE (EGFR) Routine 03/02/2025 12:23 PM EDT Vision changes HEMOGLOBIN ELECTROPHORESIS Routine 03/02/2025 12:23 PM EDT Anemia affecting in third trimester CBC Routine 02/16/2025 10:25 AM EDT Encounter for supervision of other normal in second trimester HC GLUCOSE POST GLUCOSE DOSE Routine 02/16/2025 10:25 AM EDT Encounter for supervision of other normal in second trimester SYPHILIS ANTIBODY SCREEN ASSAY Routine 02/16/2025 10:25 AM EDT Encounter for supervision of other normal in second trimester HSV PCR Routine 02/16/2025 10:18 AM EDT Vulvar fissure HC NFCT DS BCT VAGINOSIS&VAGINITIS MULT AMP PROBE Routine 02/16/2025 10:18 AM EDT Vulvar irritation HEPATITIS C ANTIBODY, QUALITATIVE Routine 10/16/2024 4:34 PM EDT Encounter for supervision of other normal in first trimester PAP TEST Routine 10/16/2024 12:00 AM EDT from Last 3 Months or Most Recently Relevant to Health Maintenance Results * Creatinine/eGFR (03/02/2025 12:23 PM EDT) CREATININE 0.60 0.5 - 1.5 mg/dL [facility] EGFR >120 >59 mL/min/1.7 3m2 [facility] Comment:Estimated glomerular filtration rate calculated using the CKD-EPI refit equation. Blood 03/02/2025 12:2 3 PM EDT 03/02/2025 12:30 PM EDT us Brissa Aguillon [facility] LAB BLOOD BKR ORDERABLES Final Result Performing Organization Address [facility] Co de Phone Number [address] [address] * (ABNORMAL) Reticulocytes (03/02/2025 12:23 PM EDT) RETIC (%) 1.8 0.7 - 2.5 % [facility] RETIC (ABSOLUTE) 0.0560 0.0164 - 0.0776 M/uL [facility] RETIC HGB EQUIV 26.60(L) 26.7 - 35.5 pg [facility] Comment:Decreased Retic HE i ndicates low iron availability. Retics, immature(%) 25.6(H) 3.0 - 15.9 % [facility] Blood 03/02/2025 12:2 3 PM EDT 03/02/2025 12:30 PM EDT us Radha Black [facility] LAB BLOOD BKR ORDERABLE S Final Result Performing Organization Address [facility] Co de Phone Number [address] [address] * (ABNORMAL) Iron and iron binding capacity (03/02/2025 12:23 PM EDT) IRON 33 30 - 160 ug/dL [facility] IRON BINDING CAPACITY 496(H) 228 - 428 ug/dL [facility] TRANSFERRIN SATURAT. 7(L) 15 - 50 % [facility] Blood 03/02/2025 12:2 3 PM EDT 03/02/2025 12:30 PM EDT Radha Black [facility] LAB BLOOD BKR ORDERABLE S Final Result Performing Organization Address City/[facility]/ZIP Co de Phone Number [address] [address] * (ABNORMAL) CBC (03/02/2025 12:23 PM EDT) Only the most recent of2 resultswithin the time period is included. WBC 5.83 4.00 - 11.00 K/uL [facility] RBC 3.20(L) 4.00 - 5.20 M/uL [facility] HGB 8.7(L) 12.0 - 16.0 g/dL [facility] HCT 27.0(L) 36.0 - 46.0 % [facility] PLT 271 150 - 450 K/uL [facility] MCV 84.4 80.0 - 100.0 fL [facility] MCH 27.2 27.0 - 31.0 pg [facility] MCHC 32.2 32.0 - 36.0 g/dL [facility] RDW 12.8 11.5 - 14.5 % [facility] MPV 11.9 8.4 - 12.0 fL [facility] NRBC 0.00 0.00 /100 WBCs [facility] ABSOLUTE NRBC 0.00 0.00 K/uL [facility] Blood 03/02/2025 12:2 3 PM EDT 03/02/2025 12:30 PM EDT Brissa Aguillon [facility] LAB BLOOD BKR ORDERABLES Final Result [address] [address] * Hemoglobin Evaluation (03/02/2025 12:23 PM EDT) HGB Interpretation SEE NOTE [facility] DPT OF LAB MED AND PAT+ Comment: (NOTE) No electrophoretic evidence of abnormal hemoglobin or beta thalassemia. See comment. Comment: These results do not exclude alpha thalassemia. The vast majority of hemoglobin variants and beta complex thalassemias are excluded, including the common variants Hbs S, C, D, and E, although some rare clinically significant hemoglobin disorders are electrophoretically silent. In particular, some variants such as Hb Constant Spring, or other variants, may not be detected. If otherwise unexplained lifelong/familial symptoms such as hemolysis (i.e. Bo[place] body hemolytic anemia), microcytosis, erythrocytosis, cyanosis, or hypoxia are present and additional testing is desired, please call the Met[facility] Hematology Laboratory ( ). If alpha thalassemia is a consideration, alpha globin gene deletion/duplication analysis is available (AGDD/Alpha Globin Cluster Locus Del/Dup). If genotyping to assess for Hb Constant Spring is desired, please order WASEQ/Alpha Globin Gene Sequencing, B. Additional sample required. Methodologies utilized in this interpretation include: capillary electrophoresis, HPLC. HGB Interp Cancel Test component not applicable or not reported. [facility] DPT OF LAB MED AND PAT+ Hb A 97.6 95.8 - 98.0 % [facility] DPT OF LAB MED AND PAT+ Hb F 0.0 0.0 - 0.9 % [facility] DPT OF LAB MED AND PAT+ Hb A2 2.4 2.0 - 3.3 % [facility] DPT OF LAB MED AND PAT+ Comment: (NOTE) ADDITIONAL INFORMATION This test has been modified from the mobile ui developer's instructions. Its performance characteristics were determined by [facility] in a manner consistent with CLIA requirements. This test has not been cleared or approved by the U.S. Food and Drug Administration. Variant 1 Test component not applicable or not reported. % [facility] DPT OF LAB MED AND PAT+ Variant 2 Test component not applicable or not reported. % [facility] DPT OF LAB MED AND PAT+ Variant 3 Test component not applicable or not reported. % [facility] DPT OF LAB MED AND PAT+ HGBCE Interpretation Test component not applicable or not reported. [facility] DPT OF LAB MED AND PAT+ HPLC Hemoglobin Variant See Interpretation [facility] DPT OF LAB MED AND PAT+ Comment: (NOTE) ADDITIONAL INFORMATION This test has been modified from the mobile ui developer's instructions. Its performance characteristics were determined by [facility] in a manner consistent with CLIA requirements. This test has not been cleared or approved by the U.S. Food and Drug Administration. Blood 03/02/2025 12:2 3 PM EDT 03/02/2025 12:30 PM EDT us Brissa Aguillon CNM LAB BLOOD BKR ORDERABLES Final Result [facility] DPT OF LAB MED AND PAT+ [address] [place] [address] * Alanine aminotransferase (ALT) (03/02/2025 12:23 PM EDT) ALT <5 0 - 40 U/L [facility] Blood 03/02/2025 12:2 3 PM EDT 03/02/2025 12:30 PM EDT us Brissa Aguillon CNM LAB BLOOD BKR ORDERABLES Final Result Performing Organization Address [facility]/ZIP Co de Phone Number [address] [address] * Aspartate aminotransferase (AST) (03/02/2025 12:23 PM EDT) AST 11 0 - 37 U/L [facility] Blood 03/02/2025 12:2 3 PM EDT 03/02/2025 12:30 PM EDT us Brissa Aguillon CNM LAB BLOOD BKR ORDERABLES Final Result Performing Organization Address [facility] Co de Phone Number [address] [address] * Folate (03/02/2025 12:23 PM EDT) FOLIC ACID 6.7 4.2 - 19.9 ng/mL [facility] Blood 03/02/2025 12:2 3 PM EDT 03/02/2025 12:30 PM EDT us Radha Don Kishan Rogler CNM LAB BLOOD BKR ORDERABLE S Final Result [address] [address] * (ABNORMAL) Ferritin (03/02/2025 12:23 PM EDT) FERRITIN 9(L) 13 - 150 ug/L [facility] Blood 03/02/2025 12:2 3 PM EDT 03/02/2025 12:30 PM EDT us Radha Bruce Kishan Black CNM LAB BLOOD BKR ORDERABLE S Final Result Performing Organization Address [facility]/ZIP Co de Phone Number [address] [address] * Vitamin B12 (03/02/2025 12:23 PM EDT) VITAMIN B12 430 232 - 1,245 pg/mL [facility] Blood 03/02/2025 12:2 3 PM EDT 03/02/2025 12:30 PM EDT us Radha Teo Black CN LAB BLOOD BKR ORDERABLE S Final Result Performing Organization Address [facility]/ZIP Co de Phone Number [address] [address] * Glucose tolerance test, 1 hr (02/16/2025 10:25 AM EDT) ONE HR GLUCOSE 94 70 - 180 mg/dL [facility] Blood 02/16/2025 10:2 5 AM EDT 02/16/2025 11:36 AM EDT us Hauserhu Black CNM LAB BLOOD BKR ORDERABLE S Final Result Performing Organization Address [facility]/ZIP Co de Phone Number [address] [address] * Syphilis antibody screen (02/16/2025 10:25 AM EDT) RPR NON-REACTIV E NON-REACTI VE [facility] Blood 02/16/2025 10:2 5 AM EDT 02/16/2025 11:36 AM EDT Radha Bruce Kishan Black [facility] LAB BLOOD BKR ORDERABLE S Final Result Performing Organization Address City/[facility]/ZIP Co de Phone Number [facility] [address] [place] [address] * HSV PCR Other fluid (specify below) (02/16/2025 10:18 AM EDT) Pathologist [facility] HSV 1, PCR Negative Negative [facility] DPT OF LAB MED AND PAT+ HSV 2, PCR Negative Negative [facility] OF [facility] MED [facility] PAT+ Comment: (NOTE) ADDITIONAL INFORMATION This test was developed and its performance characteristics determined by [facility] in a manner consistent with CLIA requirements. This test has not been cleared or approved by the U.S. Food and Drug Administration. SPECIMEN SOURCE HSV VULVA [facility] DPT OF LAB MED AND PAT+ Comment:Corrected on 02/22 A T 1130: previously reported as OTHER FLUID Other (Other fluid (specify below)) 02/16/2025 10:18 AM EDT 02/16/2025 4:35 PM EDT Brissa Aguillon CN LAB GENERAL ORDERABLES Edited R esult - Final [facility] DPT OF LAB MED AND PAT+ [address] [place] [address] * Vaginitis Panel (02/16/2025 10:18 AM EDT) Bacterial Vaginosis Negative Negative [facility] Lolita Species Not Detected Not Detected [facility] Lolita glabrata Not Detected Not Detected [facility] Trichomonas Vaginalis Not Detected Not Detected [facility] Other (Vaginal) 02/16/2025 1 0:18 AM EDT 02/16/2025 4:34 PM EDT us Brissa Aguillon CNM LAB GENERAL ORDERABLES Final Re sult Performing Organization Address [facility] Co de Phone Number [address] [address] * Hepatitis C antibody, qualitative (10/16/2024 4:34 PM EDT) HCV NON-REACTIV E NON-REACTI VE [facility] Blood 10/16/2024 4:34 PM EDT 10/16/2024 4:52 PM EDT us Pati Nguyen CNM, MPH LAB BLOOD BKR ORDERABL ES Final Result Performing Organization Address [facility] de Phone Number [address] [address] * Pap Test (10/16/2024 12:00 AM EDT) Report [address] [address] Clinical Informatics Spec: Abram Duvall MD ASSISTANT OFFICE MANAGER Cytology Report FINAL DIAGNOSIS A. PAP SMEAR (THIN PREP) CE: SPECIMEN ADEQUACY: Satisfactory for evaluation; transformation zone present. INTERPRETATION: NEGATIVE FOR INTRAEPITHELIAL LESION OR MALIGNANCY. Fungal organisms morphologically consistent with Lolita species. This specimen was analyzed by the automated ThinPrep Imaging System ([employer] and the selected vasquez were reviewed by a digital associate media director. Electronically Signed Out By: ARIANNA Echeverria(ASCP) The Pap test is a screening test primarily for squamous cancers and precursors and has associated false-negative and false-positive results. New technologies such as liquid-based preparations may decrease but will not eliminate all false-negative results. Regular sampling and follow-up of unexplained clinical signs and symptoms are recommended to minimize false negative results. PROCEDURES/ADDENDA HPV Testing (Requested) Ordered Date: 10/17/2024 A. PAP SMEAR (THIN PREP) CE: High-risk HPV Panel w/ extended genotyping NEG HPV 16-NEG HPV 18-NEG HPV 45-NEG HPV 33/58-NEG HPV 31-NEG HPV 56/59/66-NEG HPV 51-NEG HPV 52-NEG HPV 35/39/68-NEG Performed by real-time polymerase chain reaction (PCR) at [facility], [address] [place] [address] using the FDA-approved BD Onclarity HPV Assay with extended genotyping. Uses of the assay in scenarios other than those approved by the FDA should be considered off-label use. The accuracy and precision of this test for all other off-label specimen sources has been verified in the Cytopathology Laboratory of the [facility] and has not been cleared or approved by the U.S. Food and Drug Administration. Clinical correlation is advised. The assay assesses the E6/E7 DNA target and utilizes human beta globin as an internal control. Cytology and HPV testing are screening assays and should not be used as the sole means of detecting cancer. False-positives and false-negatives can occur. CLINICAL HISTORY Date of Last Menstrual Period: 08-01-2024 Menstrual History: Other Clinical Conditions: Screening Pap SPECIMEN SOURCE A: PAP SMEAR (THIN PREP) CE Patient Name: ARCELIA OCONNOR : 1990 (Age: 34) Sex: F Institution: [facility] Location: [facility] Date of Collection: 10/16/2024 Date of Reported: 10/23/2024 13:14 Results to: Pati Nguyen [facility] Final Diagnosis A. PAP SMEAR (THIN PREP) CE: SPECIMEN ADEQUACY: Satisfactory for evaluation; transformation zone present. INTERPRETATION: NEGATIVE FOR INTRAEPITHELIAL LESION OR MALIGNANCY. Fungal organisms morphologically consistent with Lolita species. This specimen was analyzed by the automated ThinPrep Imaging System ([employer] and the selected vasquez were reviewed by a digital associate media director. [facility] Results\Inter pretation A. PAP SMEAR (THIN PREP) CE: High-risk HPV Panel w/ extended genotyping NEG HPV 16-NEG HPV 18-NEG HPV 45-NEG HPV 33/58-NEG HPV 31-NEG HPV 56/59/66-NEG HPV 51-NEG HPV 52-NEG HPV 35/39/68-NEG Performed by real-time polymerase chain reaction (PCR) at [facility], [address] [place] [address] using the FDA-approved [employer] Onclarity HPV Assay with extended genotyping. Uses of the assay in scenarios other than those approved by the FDA should be considered off-label use. The accuracy and precision of this test for all other off-label specimen sources has been verified in the Cytopathology Laboratory of the [facility] and has not been cleared or approved by the U.S. Food and Drug Administration. Clinical correlation is advised. The assay assesses the E6/E7 DNA target and utilizes human beta globin as an internal control. Cytology and HPV testing are screening assays and should not be used as the sole means of detecting cancer. False-positives and false-negatives can occur. [facility] Conversion Type (Conversion Source) 10/16/2024 10/17/2024 9:25 AM EDT us Pati Nguyen CNM, MPH CYTOLOGY ORDERABLES Ed ited Result - Final [facility] [address] [place] [address] from Last 3 Months or Most Recently Relevant to Health Maintenance Insurance [facility] [place] [address] [place] [address] [employer] [facility] [employer] Advance Directives For more information, please contact: [phone] (9AM - 5PM [facility], Wednesday-Wednesday) * Full Code (Latest Code Status on File) Date Activated Date Inactivated Comments 05/24/2023 9:23 AM Question Answer Comments Code Status Confirmed With: Patient Care Teams Emergency Dispatcher Relationship Specialty Start Date End Date Mayra Olivo MD [address] [place] [address] PCP - General Internal Medicine 09/18/22 Additional Source Comments The information contained in this document represents components of the legal health record. It is not the complete legal health record.[facility]
== END 2025-04-14 21:12 | disposition home or self-care (01) ==
PROVIDERS: Physician Assistant Medical; Emergency Provider Emergency Medicine Emergency Medical Services; PCP Internal Medicine
DX: O98.513 Other viral diseases complicating pregnancy, third trimester (principal); B33.8 Other specified viral diseases; J10.1 Influenza due to other identified influenza virus with other respiratory manifestations; M79.10 Myalgia, unspecified site; Z3A.36 36 weeks gestation of pregnancy; Z03.818 Encounter for observation for suspected exposure to other biological agents ruled out; Z79.899 Other long term (current) drug therapy
CPT/HCPCS: 87637; 99282; 99283